=== PATIENT | male | born 1945 | race African-American/Black ===

== ENCOUNTER → 2016-11-24 | Outpatient (CLI) | payer OTHER | LOC: BHFA 15:00 | PROVIDERS: ATTEND Internal Medicine Cardiovascular Disease | DX: I48.91 Unspecified atrial fibrillation (principal); I42.9 Cardiomyopathy, unspecified; I10 Essential (primary) hypertension; E78.00 Pure hypercholesterolemia, unspecified; I34.0 Nonrheumatic mitral (valve) insufficiency ==

== ENCOUNTER → 2017-01-12 | Outpatient (CLI) | payer OTHER | LOC: BHFA 09:30 | PROVIDERS: ATTEND Internal Medicine Cardiovascular Disease | DX: I48.91 Unspecified atrial fibrillation (principal); I48.92 Unspecified atrial flutter; I47.2 Ventricular tachycardia ==

== ENCOUNTER 2017-01-26 06:25 | Inpatient (IN) | payer OTHER ==
[2017-01-26] MEDS ORDERED: NS 1,000 ML IV ONE (06:31)
[2017-01-26] MEDS ORDERED: diphenhydrAMINE 25 MG CAP PO ONE ×2 (06:31→06:49)
[2017-01-26] MEDS ORDERED: ASPIRIN EC 325 MG TAB PO ONE ×2 (06:31→06:49)
[2017-01-26] MEDS ORDERED: FAMOTIDINE 20 MG TAB PO ONE (06:31)
[2017-01-26] MEDS ORDERED: DIAZEPAM 5 MG TAB PO ONE (06:31)
--- NOTE | 2017-01-26 06:45 | CPEKG ---
Heart Rate: 62 RR Interval: 968 P-R Interval: 204 QRSD Interval: 112 QT Interval: 392 QTC Interval: 398 P Enterprise: 72 QRS Enterprise: 128 T Wave Enterprise: 68 EKG Severity - ABNORMAL ECG - EKG Impression: SINUS RHYTHM EKG Impression: NONSPECIFIC INTRAVENTRICULAR CONDUCTION DELAY EKG Impression: LOW VOLTAGE IN FRONTAL LEADS EKG Impression: INFEROLATERAL INFARCT, AGE INDETERMINATE EKG Impression: COMPARED WITH 11/19/2014, ATRIAL PACING NOT SEEN ON CURRENT STUDY Electronically Signed By: Divya Stanton 26-Jan-2017 11:48:13
[2017-01-26] MEDS ORDERED: FAMOTIDINE 20 MG TAB ONE (06:49)
[2017-01-26] MEDS ORDERED: DIAZEPAM 5 MG TAB ONE (06:50)
[2017-01-26 07:01] LABS: % IMMATURE GRANULYOCYTES 0.2 % (0.0-1.1); ABSOLUTE IMMATURE GRANULOCYTES 0.01 10^3/uL (0.00-0.10); ADD DIFF? NO; ADD MORPH? NO; ADD SCAN? NO; ATYPICAL LYMPHOCYTE FLAG 10 (0-99); FRAGMENT RBC FLAG 0 (0-99); HEMATOCRIT 37.2 % (40.0-51.0); HEMOGLOBIN 13.4 g/dL (13.7-17.5); LEFT SHIFT FLG 0 (0-99); LIPEMIA HEMOLYSIS FLAG 90 (0-99); MEAN CELL HEMOGLOBIN 33.1 pg (27.9-34.1); MEAN CELL VOLUME 91.9 fL (81.5-99.8); MEAN PLATELET VOLUME 10.1 fL (8.7-11.7); PLATELET CLUMPS FLAG 0 (0-99); PLATELET COUNT 89 10^3/uL (150-400); RED BLOOD CELL COUNT 4.05 10^6/uL (4.40-6.38)
[2017-01-26 07:11] LABS: INR 2.2 (0.83-1.16); PROTIME(PATIENT) 24.6 SEC (12.0-15.0)
[2017-01-26 07:21] LABS: ANION GAP 9 mEq/L (8-16); CALCIUM 9.3 mg/dL (8.5-10.4); CARBON DIOXIDE 23 mEq/l (22-31); CHLORIDE 105 mEq/L (97-110); CHOLESTEROL 166 mg/dL (140-220); CHOLESTEROL/HDL RATIO 3.13 RATIO (1.00-4.97); CREATININE 1.8 mg/dL (0.7-1.3); GLOMERULAR FILTRATION RATE 38; GLUCOSE 91 mg/dL (70-100); HIGH DENSITY LIPOPROTEIN 53 mg/dL (40-65); LDL/HDL RATIO 1.64 RATIO (1.00-3.64); LOW DENSITY LIPOPROTEIN 87 mg/dL (80-100); MAGNESIUM 1.8 mg/dL (1.6-2.3); NON-HIGH DENSITY LIPOPROTEIN 113 mg/dL (90-129); POTASSIUM 4.2 mEq/L (3.5-5.2); SODIUM 137 mEq/L (134-144); TRIGLYCERIDE 134 mg/dL (40-150); VERY LOW DENSITY LIPOPROTEINS 26 mg/dL (8-25)
[2017-01-26] MEDS ORDERED: HEPARIN 10,000 UNIT/10 ML MDV ONE (08:05)
[2017-01-26] MEDS ORDERED: IOPAMIDOL (ISOVUE-370) 150 ML BTL IV ONE (08:05)
[2017-01-26] MEDS ORDERED: VERAPAMIL 5 MG/2 ML VIAL ONE (08:05)
[2017-01-26] MEDS ORDERED: LIDOCAINE 1% 300 MG/30 ML SDV ONE (08:05)
[2017-01-26] MEDS ORDERED: fentaNYL 100 MCG/2 ML INJ ONE (08:05)
[2017-01-26] MEDS ORDERED: MIDAZOLAM 2 MG/2 ML VIAL ONE (08:05)
--- NOTE | 2017-01-26 10:27 | CPIP ---
[f rep st] INVASIVE CARDIAC PROCEDURE PROCEDURE PERFORMED: 1. Left heart catheterization. 2. Selective coronary angiography. 3. TR band arteriotomy repair. COMPLICATIONS: None. TOOL GRINDING TECHNICIAN: Jan Marion MD. INDICATION FOR THE PROCEDURE: Recurrent and incessant VT, which is new, requiring therapy in a cherrie ent with known spongiform cardiomyopathy/ventricular non compaction. BRIEF CLINICAL HISTORY: The patient has had hemodynamically significant VT, which was below a rate at which his AICD would deliver therapy. He had a presyncopal event and urinary incontinence relate d to his hypotension, and ultimately the ventricular rate sped up to a level that the device perform ed antitachycardia pacing. He has been admitted to the hospital, because of a lateral infarct patte rn on the EKG, to rule out coronary artery disease as a cause for new and recurrent ventricular tach ycardia. PROCEDURE IN DETAIL: After informed consent was obtained and n.p.o. status was confirmed, the regio n of the right wrist was cleaned, prepped, and draped in sterile fashion. A plethysmography and tra ce-assisted Petr test was performed, documenting dual arterial supply to the right index finger. T he patient then underwent the previously mentioned diagnostic procedure, with the use of a JR4, a JL 4, and a 5-Cymraes pigtail catheter. Standard wire exchange technique was utilized for all catheter exchanges. The right coronary artery is dominant. Approximately 4.5 mm in size proximally, with RICHIE-3 flow to the distal vessel. It does give rise to the posterior descending artery and a posterolateral ventr icular branch, which is relatively small. The left main coronary is large, approximately 8 mm in size, and bifurcates into an LAD and circumfl ex system. The LAD wraps around the ventricular apex moderately, and is a very large blood vessel, again, with RICHIE-3 flow and no evidence of obstruction. A proximal diagonal branch is the primary l ateral blood vessel, and is, again, widely patent with RICHIE-3 flow. The circumflex arises in its us ual location. It is approximately 3.5 mm in size, giving rise to 2 important obtuse marginal branch es and a left atrial branch, as well, which is prominent. No evidence of flow-limiting obstruction, dissection, or thrombus is identified on angiography. 24 mL of contrast were used for selective co ronary angiography. The patient underwent a left heart catheterization, demonstrating elevated left ventricular end-anaya tolic pressure that measured 29 mmHg. A left ventriculogram was not performed, given the patient's creatinine of 1.8 and our desire to limit the amount of contrast exposure. There was no evidence of aortic stenosis upon pullback across aortic valve. The patient will return to [facility] in good and stable condition. PLAN: For the patient to be admitted to the hospital, during a washout period for his Tikosyn, and then he will be loaded with amiodarone, starting with 300 mg intravenously on Monday morning, foll owed by a 1 mg/minute infusion, along with 400 mg p.o. b.i.d. orally to achieve a 325 g load of amio darone prior to his discharge from the hospital. If the patient develops atrial fibrillation or flutter, then he will require probably a catheter-bas ed intervention, as he has had paroxysmal and persistent atrial fibrillation in the past while on am iodarone therapy, but had only a single episode of hemodynamically important ventricular tachycardia while on amiodarone therapy. /[id number]/MODL
[2017-01-26] MEDS ORDERED: ACETAMINOPHEN 325 MG TAB PO PRN (10:42)
[2017-01-26] MEDS ORDERED: ATROPINE SULFATE 1 MG/10 ML SYR IVP PRN (10:42)
[2017-01-26] MEDS ORDERED: NITROGLYCERIN 0.4 MG BTL SL PRN (10:42)
[2017-01-26] MEDS: ISOSORBIDE DINITRATE 20 MG TAB PO SCH ×2 (14:21→20:53)
[2017-01-26] MEDS: FERROUS SULFATE 325 MG TAB PO SCH (19:25)
[2017-01-26] MEDS: CARVEDILOL 6.25 MG TAB PO SCH (19:25)
[2017-01-26] MEDS: ATORVASTATIN CALCIUM 20 MG TAB PO SCH (20:53)
[2017-01-26] MEDS: DIVALPROEX ER 250 MG TAB PO SCH (20:53)
[2017-01-26] MEDS: RAMIPRIL 5 MG CAP PO SCH (20:53)
[2017-01-26] MEDS: DOCUSATE SODIUM 100 MG CAP PO SCH (20:54)
[2017-01-26] MEDS: SPIRONOLACTONE 25 MG TAB PO SCH (20:54)
[2017-01-27 04:50] LABS: ANION GAP 8 mEq/L (8-16); CARBON DIOXIDE 23 mEq/l (22-31); CHLORIDE 109 mEq/L (97-110); CREATININE 1.5 mg/dL (0.7-1.3); GLOMERULAR FILTRATION RATE 46; GLUCOSE 80 mg/dL (70-100); POTASSIUM 4.4 mEq/L (3.5-5.2); SODIUM 140 mEq/L (134-144)
[2017-01-27] MEDS ORDERED: DIGOXIN 125 MCG TAB PO SCH (09:00)
[2017-01-27] MEDS ORDERED: CALCIUM POLYCARBOPHIL PO SCH ×2 (09:00)
[2017-01-27] MEDS: CARVEDILOL 6.25 MG TAB PO SCH ×2 (10:49→18:45)
[2017-01-27] MEDS: lamoTRIgine 25 MG TAB PO SCH (10:50)
[2017-01-27] MEDS: FUROSEMIDE 20 MG TAB PO SCH (10:50)
[2017-01-27] MEDS: FERROUS SULFATE 325 MG TAB PO SCH (10:50)
[2017-01-27] MEDS: ISOSORBIDE DINITRATE 20 MG TAB PO SCH ×3 (10:50→22:17)
[2017-01-27] MEDS: ALLOPURINOL 100 MG TAB PO SCH (10:50)
[2017-01-27] MEDS: SPIRONOLACTONE 25 MG TAB PO SCH ×2 (10:51→22:17)
[2017-01-27] MEDS: PSYLLIUM METAMUCIL 1 PKT PO SCH (10:51)
--- NOTE | 2017-01-27 11:18 | PDCARPN ---
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 He was found to have 4 episodes of VT on ICD monitoring. He has held Tikosyn as of 01/25 to allow washout and plans are for initiation of Amiodarone tomorrow. He proceeded to [facility] yesterday which showed nod disease. #. VT: no obstructive disease on [facility] proceeding to Tikosyn washout with plans to initiate Amiodarone Monday protocol will be amiodarone 300 mg bolus with 1 mg/min x 24 with concomitant initiation of Amiodarone PO 400 BID/ orders entered continue 400 BID for 1 week and then reduce 400 daily #. PAF: currently in SR with PVC singles and 1 PVC triplet on telemetry 2 runs of VT yesterday #. spongiform cardiomyopathy/LV noncompaction: EF 26% home regimen of Coreg, Hydralazine, Isosorbide, Lasix, Spironolactone, Ramipril continued appears euvolemic currently #. CKD: Cr today 1.5 will monitor #. DVT ppx: continue Warfarin and ambulate #. LOS: D/C Monday as Dr. Marion wants him top get 3.25 g load of Amiodarone Plan: Start Amiodarone tomorrow 01/27/17 10:46 01/27/17 11:20 Subjective: Feels fatigued. Had 2 runs of symptomatic VT last night. No cp, presyncope/ syncope. Reviewed/Discussed With: family, other (Dr. Marion) Objective: Vital Signs (8 Hrs) Temp Pulse Resp BP Pulse Ox 01/27/17 07:31 97.3 F 65 14 92/65 L 98 01/27/17 04:00 97.9 F 64 13 100/70 94 Intake/Output (24 Hrs) 01/26/17 01/27/17 01/28/17 05:59 05:59 05:59 Intake Total 1260 Balance 1260 Intake: Oral (ml) 660 IV Intake (ml) 600 Other: Weight 88.5 kg Number of Voids Toilet 3 Result Diagrams: 01/26/17 06:45 01/27/17 03:30 EKG: personally interpreted shows SR with IVCD, biatrial abnormality, PRWP Telemetry: reviewed - Physical Exam Constitutional: no apparent distress Eyes: PERRL, anicteric sclera Ears, Nose, Mouth, Throat: moist mucous membranes Cardiovascular: regular rate and rhythm Respiratory: clear to auscultate bilat, reduced air movement Neurologic: AAOx3 Psychiatric: cooperative, interactive ICD10 Worksheet Patient Problems: Problems Problem Status Onset Atrial fibrillation Acute Chronic Disease Mgmt/Transitional Care Acute Chronic systolic CHF (congestive heart failure) Acute Systolic CHF, acute on chronic Acute
[2017-01-27] MEDS ORDERED: WARFARIN SODIUM 2.5 MG TAB PO SCH (22:00)
[2017-01-27] MEDS: RAMIPRIL 5 MG CAP PO SCH (22:17)
[2017-01-27] MEDS: DIVALPROEX ER 250 MG TAB PO SCH (22:18)
[2017-01-27] MEDS: DOCUSATE SODIUM 100 MG CAP PO SCH (22:18)
[2017-01-27] MEDS: ATORVASTATIN CALCIUM 20 MG TAB PO SCH (22:19)
[2017-01-28] MEDS ORDERED: AMIODARONE HCL 300 MG in D5W 100 ML IV ONE (07:30)
[2017-01-28 08:05] LABS: INR 1.5 (0.83-1.16); PROTIME(PATIENT) 18.1 SEC (12.0-15.0)
[2017-01-28 08:42] LABS: ANION GAP 7 mEq/L (8-16); CALCIUM 8.9 mg/dL (8.5-10.4); CARBON DIOXIDE 22 mEq/l (22-31); CHLORIDE 108 mEq/L (97-110); CREATININE 1.3 mg/dL (0.7-1.3); GLOMERULAR FILTRATION RATE 55; GLUCOSE 85 mg/dL (70-100); POTASSIUM 4.6 mEq/L (3.5-5.2); SODIUM 137 mEq/L (134-144)
[2017-01-28] MEDS: AMIODARONE HCL 200 ML IV SCH ×2 (09:25→15:23)
[2017-01-28] MEDS: ALLOPURINOL 100 MG TAB PO SCH (10:14)
[2017-01-28] MEDS: lamoTRIgine 25 MG TAB PO SCH (10:14)
[2017-01-28] MEDS: CARVEDILOL 6.25 MG TAB PO SCH ×2 (10:15→19:10)
[2017-01-28] MEDS: FUROSEMIDE 20 MG TAB PO SCH (10:15)
[2017-01-28] MEDS: FERROUS SULFATE 325 MG TAB PO SCH (10:15)
[2017-01-28] MEDS: SPIRONOLACTONE 25 MG TAB PO SCH ×2 (10:15→21:22)
[2017-01-28] MEDS: ISOSORBIDE DINITRATE 20 MG TAB PO SCH ×3 (10:15→21:21)
[2017-01-28] MEDS: AMIODARONE HCL 200 MG TAB PO SCH ×2 (10:16→21:21)
[2017-01-28] MEDS: PSYLLIUM METAMUCIL 1 PKT PO SCH (10:16)
--- NOTE | 2017-01-28 10:19 | PDCARPN ---
Cardiology Progress Note Chief Complaint: Mr. Basurto is feeling well. No events overnight. Telemetry demonstrate NSR with occasional PVC's. No sustained ventricular ectopy. Assessment/Plan: Assessment: 1. Ventricular Tachycardia 2. PAF 3. LV non compaction. LVEF 26% 4. CKD. Cr 1.5 Plan: 1. Amiodarone loading 2. Telemetry 3. Monitor renal function 4. Continue current mediations. know hx of hypotension, asymptomatic. 5. Dispo: plan for DC on monday after Amiodarone loading 01/28/17 10:17 01/28/17 10:21 Reviewed/Discussed With: multidisciplinary team Objective: Vital Signs (8 Hrs) Temp Pulse Resp BP Pulse Ox 01/28/17 08:00 36.6 C 68 16 84/58 L 92 01/28/17 04:00 36.5 C 66 13 86/61 L 95 Intake/Output (24 Hrs) 01/27/17 01/28/17 01/29/17 05:59 05:59 05:59 Intake Total 1260 650 Balance 1260 650 Intake: Oral (ml) 660 650 IV Intake (ml) 600 Other: Weight 88.5 kg Intake Quantity Yes Sufficient Number of Voids Toilet 3 2 Result Diagrams: 01/26/17 06:45 01/28/17 07:31 Telemetry: NSR with occasional PVC's - Physical Exam Constitutional: healthy appearing Ears, Nose, Mouth, Throat: moist mucous membranes Cardiovascular: regular rate and rhythm, no murmurs, no rubs, no gallops Skin: no rashes Musculoskeletal: no muscular tenderness Neurologic: AAOx3, CN II-XII grossly intact Psychiatric: cooperative, interactive, following commands ICD10 Worksheet Patient Problems: Problems Problem Status Onset Atrial fibrillation Acute Chronic Disease Mgmt/Transitional Care Acute Chronic systolic CHF (congestive heart failure) Acute Systolic CHF, acute on chronic Acute
[2017-01-28] MEDS: RAMIPRIL 5 MG CAP PO SCH (21:21)
[2017-01-28] MEDS: DOCUSATE SODIUM 100 MG CAP PO SCH (21:21)
[2017-01-28] MEDS: ATORVASTATIN CALCIUM 20 MG TAB PO SCH (21:22)
[2017-01-28] MEDS: DIVALPROEX ER 250 MG TAB PO SCH (21:22)
[2017-01-28] MEDS: WARFARIN SODIUM 5 MG TAB PO SCH (21:25)
[2017-01-29 05:06] LABS: ALANINE AMINOTRANSFERASE 35 IU/L (21-72); ALBUMIN 3.9 g/dL (3.5-5.0); ALKALINE PHOSPHATASE 80 IU/L (38-126); ANION GAP 11 mEq/L (8-16); ASPARTATE AMINOTRANSFERASE 35 IU/L (17-59); BILIRUBIN,TOTAL 1.1 mg/dL (0.1-1.4); CALCIUM 8.8 mg/dL (8.5-10.4); CARBON DIOXIDE 19 mEq/l (22-31); CHLORIDE 105 mEq/L (97-110); CREATININE 1.8 mg/dL (0.7-1.3); GLOMERULAR FILTRATION RATE 38; GLUCOSE 92 mg/dL (70-100); POTASSIUM 4.6 mEq/L (3.5-5.2); SODIUM 135 mEq/L (134-144)
[2017-01-29 05:10] LABS: INR 1.44 (0.83-1.16); PROTIME(PATIENT) 17.5 SEC (12.0-15.0)
[2017-01-29] MEDS: CARVEDILOL 6.25 MG TAB PO SCH ×2 (09:13→19:31)
[2017-01-29] MEDS: AMIODARONE HCL 200 MG TAB PO SCH ×2 (09:13→21:20)
[2017-01-29] MEDS: ISOSORBIDE DINITRATE 20 MG TAB PO SCH ×3 (10:19→21:21)
[2017-01-29] MEDS: lamoTRIgine 25 MG TAB PO SCH (10:19)
[2017-01-29] MEDS: PSYLLIUM METAMUCIL 1 PKT PO SCH (10:20)
[2017-01-29] MEDS: ALLOPURINOL 100 MG TAB PO SCH (10:20)
[2017-01-29] MEDS: FUROSEMIDE 20 MG TAB PO SCH (10:20)
[2017-01-29] MEDS: FERROUS SULFATE 325 MG TAB PO SCH (10:20)
[2017-01-29] MEDS: SPIRONOLACTONE 25 MG TAB PO SCH ×2 (10:20→21:21)
--- NOTE | 2017-01-29 10:21 | PDCARPN ---
Cardiology Progress Note Chief Complaint: Mr. Basurto is doing well. He complains of occasional abdominal discomfort, a similar sensation that he experienced with Afib in the past. No evidence of afib on telemetry. He did have a recorded tracing on telemetry this morning at 8:20 that is consistent with artifact that occurred while walking to the bathroom. He was asymptomatic at the time. There is no ventricular tachycardia on telemetry. Rare PVC's. Noter Cr is 1.8 today. His Cr has fluctuated from 1.8 on admit, to 1.3 then 1.5 and 1.8 today. Will continue to follow. BP is chronically low. Asymptomatic. Assessment/Plan: Assessment: 1. Ventricular Tachycardia 2. PAF 3. LV non compaction. LVEF 26% 4. CKD. Cr 1.8 Plan: 1. Amiodarone 400 mg bid (He has had 2.6 gram to date) 2. Telemetry 3. Monitor renal function 4. Continue current mediations. know hx of hypotension, asymptomatic. 5. Dispo: plan for DC on monday after Amiodarone loading 01/28/17 10:17 01/28/17 10:21 01/29/17 10:21 Reviewed/Discussed With: multidisciplinary team Time Spent With Patient: 25 minutes Objective: Vital Signs (8 Hrs) Temp Pulse Resp BP Pulse Ox 01/29/17 07:27 36.3 C 60 14 88/58 L 97 01/29/17 04:00 36.6 C 60 17 82/55 L 95 Intake/Output (24 Hrs) 01/28/17 01/29/17 01/30/17 05:59 05:59 05:59 Intake Total 650 650 Balance 650 650 Intake: Oral (ml) 650 650 Other: Intake Quantity Yes Yes Sufficient Number of Voids Toilet 2 2 Result Diagrams: 01/26/17 06:45 01/29/17 03:40 - Physical Exam Constitutional: WDWN Neurologic: AAOx3, CN II-XII grossly intact Psychiatric: cooperative ICD10 Worksheet Patient Problems: Problems Problem Status Onset Atrial fibrillation Acute Chronic Disease Mgmt/Transitional Care Acute Chronic systolic CHF (congestive heart failure) Acute Systolic CHF, acute on chronic Acute
[2017-01-29] MEDS ORDERED: LORazepam 0.5 MG TAB PO PRN (20:48)
[2017-01-29] MEDS: DOCUSATE SODIUM 100 MG CAP PO SCH (21:20)
[2017-01-29] MEDS: RAMIPRIL 5 MG CAP PO SCH (21:20)
[2017-01-29] MEDS: DIVALPROEX ER 250 MG TAB PO SCH (21:20)
[2017-01-29] MEDS: WARFARIN SODIUM 5 MG TAB PO SCH (21:21)
[2017-01-29] MEDS: ATORVASTATIN CALCIUM 20 MG TAB PO SCH (21:21)
[2017-01-30 06:00] VITALS: RESP 16
[2017-01-30 08:19] LABS: INR 1.61 (0.83-1.16); PROTIME(PATIENT) 19.2 SEC (12.0-15.0)
[2017-01-30 08:59] VITALS: BP 82/54; PULSE 60; TEMP 97.7; O2SAT 99
[2017-01-30] MEDS: AMIODARONE HCL 200 MG TAB PO SCH (08:59)
[2017-01-30] MEDS: FERROUS SULFATE 325 MG TAB PO SCH (08:59)
[2017-01-30] MEDS: lamoTRIgine 25 MG TAB PO SCH (08:59)
[2017-01-30] MEDS: CARVEDILOL 6.25 MG TAB PO SCH (08:59)
[2017-01-30] MEDS: ALLOPURINOL 100 MG TAB PO SCH (08:59)
[2017-01-30] MEDS: FUROSEMIDE 20 MG TAB PO SCH (08:59)
[2017-01-30] MEDS: SPIRONOLACTONE 25 MG TAB PO SCH (08:59)
[2017-01-30] MEDS: ISOSORBIDE DINITRATE 20 MG TAB PO SCH (08:59)
[2017-01-30] MEDS: PSYLLIUM METAMUCIL 1 PKT PO SCH (09:04)
--- NOTE | 2017-01-30 09:44 | GDS ---
[f rep st] DISCHARGE SUMMARY DISCHARGE DIAGNOSES: 1. Severe nonischemic cardiomyopathy, thought secondary to left ventricular noncompaction. 2. Chronic systolic congestive heart failure. 3. History of ventricular tachycardia, appropriately treated with ICD therapy. 4. History of paroxysmal atrial fibrillation. 5. History of chronic renal insufficiency. HOSPITAL COURSE: The patient was admitted after he was found to have 4 episodes of appropriately-tr eated ventricular tachycardia on ICD monitoring. He was on Tikosyn at the time. Tikosyn was discon tinued. He was allowed to wash out for several days, at which point amiodarone was begun. He was l oaded with amiodarone. During his hospitalization here, he did not manifest any significant ventric ular arrhythmias or atrial arrhythmias. He tolerated the change in medications quite nicely. Becau se of the ventricular tachycardia, he underwent coronary angiography on the date of his admission. There is a full and separately dictated report. There was no indication of obstructive coronary art dinah disease. PERTINENT LABORATORIES: During his hospitalization here, his renal function remained stable. At [facility], his BUN was 26, with a creatinine of 1.8, potassium of 4.6, normal liver function tests, an d terminal proBNP of 2070. Total cholesterol 166, LDL 87, HDL 53, TSH was 1.3. His INR at admissio n was 2.2, and at discharge 1.61. White blood cell count of 5.74, hematocrit 37.2, platelet count o f 89,000. DISCHARGE PHYSICAL EXAMINATION: VITAL SIGNS: Blood pressure 95/59, heart rate 66, respiratory rate 16, saturations on room air 94%. GENERAL: Healthy black male in no acute distress. HEENT: No ju gular venous distention. RESPIRATORY: Clear lung hodges bilaterally. CARDIAC: ICD located in the left infraclavicular fossa. Regular rate and rhythm. Soft third heart sound. ABDOMEN: Soft with no masses. EXTREMITIES: Without edema. FOLLOWUP: I have asked that he follow up with Dr. Marion some time later this week. I have also as ked him to get an INR, either Monday or , to follow up in the INR clinic and make appropr iate adjustments to his Coumadin dose, in light of the interaction with amiodarone. /[id number]/MODL
== END 2017-01-30 11:09 | disposition home or self-care (01) | DRG 287 ==
LOC: FCATH 06:25 → OBSVTOIN 11:08 → F2W 11:49
PROVIDERS: ADMIT Internal Medicine Cardiovascular Disease; ATTEND Internal Medicine Cardiovascular Disease
DX: I47.2 Ventricular tachycardia (principal); I50.22 Chronic systolic (congestive) heart failure; I12.9 Hypertensive chronic kidney disease with stage 1 through stage 4 chronic kidney disease, or unspecified chronic kidney disease; N18.3 Chronic kidney disease, stage 3 (moderate); E78.00 Pure hypercholesterolemia, unspecified; Z95.810 Presence of automatic (implantable) cardiac defibrillator
CPT/HCPCS: J0282; J1644; J2250; J3010; Q9967

== ENCOUNTER 2017-02-01 14:59 | Inpatient (IN) | payer OTHER ==
--- NOTE | 2017-02-01 15:21 | EDPHY ---
H & P Stated Complaint: A-Robbie MENDOZA sent pt stomach cramping ANGLIN started monday Time Seen by Provider: 02/01/17 15:21 - Personal History Current Tetanus/Diphtheria Vaccine: Yes Current Tetanus Diphtheria and Acellular Pertussis (TDAP): Yes - Medical/Surgical History Hx Asthma: No Hx Chronic Respiratory Disease: No Hx Diabetes: No Hx Cardiac Disease: Yes Hx Renal Disease: Yes Hx Cirrhosis: No Hx Alcoholism: No Hx HIV/AIDS: No Hx Splenectomy or Spleen Trauma: No Other PMH: medical- aflutter (ablation), afib, hld, htn, TIA, defibrilator, spongiform cardiomyopathy, gout, depression, mod to severe mitral regurg, AICD, VT, hypotension, cardiac ablations, heart failure, ckd, dyslipidemia, - Social History Smoking Status: Former smoker Constitutional: Initial Vital Signs Temperature (C) 36.8 C 02/01/17 15:02 Heart Rate 88 02/01/17 15:02 Respiratory Rate 16 02/01/17 15:02 Blood Pressure 89/59 L 02/01/17 15:02 O2 Sat (%) 99 02/01/17 15:02 O2 Delivery Mode [Post Non-Rebreather Mask Procedure 4th] O2 Delivery Mode [Post Non-Rebreather Mask Procedure 3rd] O2 Delivery Mode [Post Non-Rebreather Mask Procedure 2nd] O2 Delivery Mode [Post Non-Rebreather Mask Procedure 1st] O2 Delivery Mode [Procedural Non-Rebreather Mask 2nd] O2 Delivery Mode [Procedural Non-Rebreather Mask 1st] O2 Delivery Mode Non-Rebreather Mask O2 (L/minute) [Post Procedure 15 4th] O2 (L/minute) [Post Procedure 15 3rd] O2 (L/minute) [Post Procedure 15 2nd] O2 (L/minute) [Post Procedure 15 1st] O2 (L/minute) [Procedural 2nd] 100 O2 (L/minute) [Procedural 1st] 15 O2 (L/minute) 15 Allergies/Adverse Reactions: levofloxacin Allergy (Verified 05/13/15 08:53) levofloxicillin Allergy (Uncoded 04/17/14 07:01) Home Medications: Medication Instructions Recorded Atorvastatin Calcium [Lipitor 20 20 mg PO HS 12/29/13 mg (*)] Carvedilol [Coreg (*)] 12.5 mg PO BIDMEAL 12/29/13 Digoxin [Lanoxin 0.125 mg] 0.125 mg PO DAILY 12/29/13 Divalproex ER [Depakote ER 250 MG 250 mg PO HS 12/29/13 (*)] Docusate Sodium [Colace 100 MG (*)] 200 mg PO HS 12/29/13 Ramipril [Altace 5mg (*)] 5 mg PO HS 12/29/13 Herbals/Supplements -Info Only 1 ea PO DAILY 05/22/14 Calcium Carbonate [Calcium] 500 mg PO DAILY 11/17/14 Calcium Polycarbophil [FIBERCON] 2 tab PO DAILY 05/12/15 Warfarin Sodium [Coumadin 2.5MG 2.5 mg PO TUFR@22 05/12/15 (*)] Isosorbide Dinitrate [Isosorbide 20 mg PO TID 01/26/17 Dinitrate 20 mg (*)] Spironolactone [Aldactone 25 MG 25 mg PO BID 01/26/17 (*)] Warfarin Sodium [Coumadin 5MG (*)] 5 mg PO SUMOWETHSA@22 01/26/17 hydrALAZINE [Apresoline 50 mg (*)] 50 mg PO TID 01/26/17 lamoTRIgine [LaMICtal] 25 mg PO DAILY 01/26/17 Acetaminophen [Tylenol 325mg (*)] 650 mg PO Q4HRS PRN #0 tab 01/30/17 Allopurinol [Allopurinol 100 MG 100 mg PO DAILY #0 tab 01/30/17 (*)] Amiodarone HCl [Pacerone (*)] 400 mg PO BID #60 tab 01/30/17 Ergocalciferol [Vitamin D2 (*)] 50,000 unit PO Q10D 02/01/17 Furosemide [Lasix 40 MG (*)] 20 mg PO DAILY 02/01/17 clonazePAM [Clonazepam] 0.5 mg PO DAILY PRN 02/01/17 Medical Decision Making ED Course/Re-evaluation: CHIEF COMPLAINT: Persistent generalized weakness HISTORY OF PRESENT ILLNESS: The patient is an anticoagulated 71 y/o male with an extensive cardiac history who presents to the Emergency Department complaining of generalized weakness and shortness of breath beginning after discharged home from the hospital on Monday, two days prior to arrival. He was admitted to the hospital on 01/26 for ventricular tachycardia and nonischemic cardiomyopathy. He has a pacemaker in place; when interrogated, the pacemaker revealed that the patient has been in persistent atrial fibrillation since leaving the hospital on 01/30. Upon arrival , the patient reports that he has not been sleeping well, has persistent generalized weakness, and has shortness of breath. He denies syncope, near syncope, or chest pain. He is taking amiodarone to manage his dysrhythmia. Cardiac history also includes CHF, nonischemic cardiomyopathy, and hypertension. REVIEW OF SYSTEMS: A 10 point review of systems was performed and is negative with the exception of the elements mentioned in the history of present illness. PHYSICAL EXAM: HR 88, BP 89/59, O2 Sat 99%, RR. Temp noted 36.8 C. General Appearance: Pale, Alert, well hydrated, appropriate, and non-toxic appearing. Head: Atraumatic without scalp tenderness or obvious injury Eyes: Pupils equal, round, reactive to light and accommodation, EOMI, no trauma , no injection. Ears: Clear bilaterally, no perforation, normal landmarks Nose: Atraumatic, no rhinorrhea, clear. Throat: There is no erythema or exudates, no lesions, normal tonsils, mucus membranes moist. Neck: Supple, 2+ carotid upstroke, nontender, no lymphadenopathy. Respiratory: No retractions, no distress, no wheezes, and no accessory muscle use. Bilateral rales. Cardiovascular: Atrial fibrillation, paced rate 102. No murmurs, rubs, or gallops. Bilateral carotid, radial, dorsalis pedis, and posterior tibial pulses intact. Good capillary refill all extremities. Gastrointestinal: Abdomen is soft, nontender, non-distended, no masses, no rebound, no guarding, no peritoneal signs. Musculoskeletal: Normal active ROM of all extremities, atraumatic. Neurological: Alert, appropriate, and interactive. The patient has normal DTRs and non-focal cranial nerves, motor, sensory, and cerebellar exam. Skin: Good turgor, no nodules on palpation. Superficial thrombophlebitis of left forearm from IV stick. Past medical history includes chronic renal insufficiency, paroxysmal atrial fibulation, chronic systolic congestive heart failure, ventricular tachycardia, severe nonischemic cardiomyopathy, TIA, hyperlipidemia, hypotension. Past surgical history: Cardiac ablation Family history: Non-contributory Social history: Retired Past medical records were viewed including 01/26/17, 05/13/15, 12/29/13, 02/21/11 admissions. DIFFERENTIAL DIAGNOSIS: The differential diagnosis for the patient's chest pain included but was not limited to atrial fibulation, myocardial ischemia, ventricular tachycardia, DVT. CRITICAL CARE TIME: I spent a total of 30 minutes of critical care time including but not limited to obtaining history, performing a physical exam, ordering interventions and the bedside monitoring of those interventions, collecting and interpreting tests and discussion with consultants but not including time spent performing procedures. PROCEDURES/DIAGNOSTICS: Initial EKG obtained at 1525. The 12 lead EKG was interpreted by myself. Atrial fibulation rate controlled 102. Borderline prolonged QT interval. See hard copy and/or "tracemaster" electronic copy for interpretation. Procedure: Conscious sedation. Indication: Cardioversion for atrial fibulation I was asked by Dr. Dennis to perform procedural sedation. The patient is an appropriate candidate to tolerate procedural sedation. The patient's vitals signs and mental status are appropriate. The risks, benefits and alternatives of the sedation were discussed with the patient. The patient is ASA classification 1. The patient's Mallampati airway score was 1 and the patient did meet the 3-3-2 airway measurements. A time out was completed. The patient was sedated with 100 mg/Propofol. The patient was monitored with continuous pulse oximetry, slitting machine operator helper and end tidal CO2. There were no complications and no significant hypoxemia. The total time I spent at the bedside during the procedural sedation was 9 minutes. The patient was examined after the procedural sedation and has returned to their pre-sedation baseline with normal vital signs and a normal examination. Procedure: Electrical Cardioversion. Indication: Atrial fibulation Risks, benefits, alternatives discussed with the patient and consent obtained. The patient was on a continuous concessions manager, with airway equipment at the bedside. The patient was on continuous pulse oximetry and passive CO2 monitor. The cardioversion was performed with 200 joules biphasic current. The cardioversion was successful. The patient tolerated the procedure well with no complications. The procedure was performed by Dr. Dennis. Repeat EKG obtained following cardioversion. The 12 lead EKG was interpreted by myself. Normal sinus rhythm, rate 66. See hard copy and/or "tracemaster" electronic copy for interpretation. MEDICAL DECISION MAKING: This is a 71 y/o patient with an extensive cardiac history, with a pacemaker, who has been in atrial fibulation since his discharge from the hospital on for nonischemic cardiomyopathy and ventricular tachycardia. He is hypotensive at 89/59 upon arrival. Labs showed slightly elevated troponin, acute renal insufficiency, and a significant amount of fluid from CHF. He will not metabolize propofol very well but he need to be emergently cardioverted for his safety since he is hypotensive and this may be due to his multiple medications. I discussed this with Dr. Dennis and he agreed. Additionally, US of the left forearm will be obtained to evaluate apparent thrombophlebitis, a complication of his recent hospital admission. 1535: Dr. Dennis, media job titles, at bedside. Labs reviewed and showed Troponin slightly elevated, acute renal insufficiency, and CHF. The patient was moved to trauma 2 for cardioversion once labs were received. IV established. 1L IV NS administered as recommended by Dr. Dennis. 1750: Patient's cough is worsening due to CHF. Due to this 40 mg Lasix given. Additionally, he has superficial thrombophlebitis of his left forearm from IV stick the last time he was here. Plan to ultrasound to rule out DVT and prescription written for 1 g ansaph. 1803: US of the left forearm reveals a superficial thrombophlebitis; no DVT per Dr. Burton, radiology. The patient has remained stable following cardioversion procedure here in the ED. He will be admitted to PCU under the care of Dr. Dennis. - Data Points Laboratory Results: Laboratory Results 02/01/17 15:35 02/01/17 15:35 02/01/17 02/01/17 02/01/17 15:35 15:35 15:35 WBC 6.56 10^3/uL 10^3/uL (3.80-9.50) RBC 3.84 10^6/uL L 10^6/uL (4.40-6.38) Hgb 12.7 g/dL L g/dL (13.7-17.5) Hct 35.0 % L % (40.0-51.0) MCV 91.1 fL fL (81.5-99.8) MCH 33.1 pg pg (27.9-34.1) MCHC 36.3 g/dL g/dL (32.4-36.7) RDW 12.9 % % (11.5-15.2) Plt Count 102 10^3/uL L 10^3/uL (150-400) MPV 10.9 fL fL (8.7-11.7) Neut % (Auto) 62.7 % % (39.3-74.2) Lymph % (Auto) 26.7 % % (15.0-45.0) [place] % (Auto) 7.8 % % (4.5-13.0) Eos % (Auto) 1.7 % % (0.6-7.6) Baso % (Auto) 0.8 % % (0.3-1.7) Nucleat RBC Rel Count 0.0 % % (0.0-0.2) Absolute Neuts (auto) 4.12 10^3/uL 10^3/uL (1.70-6.50) Absolute Lymphs (auto) 1.75 10^3/uL 10^3/uL (1.00-3.00) Absolute Monos (auto) 0.51 10^3/uL 10^3/uL (0.30-0.80) Absolute Eos (auto) 0.11 10^3/uL 10^3/uL (0.03-0.40) Absolute Basos (auto) 0.05 10^3/uL 10^3/uL (0.02-0.10) Absolute Nucleated RBC 0.00 10^3/uL 10^3/uL (0-0.01) Immature Gran % 0.3 % % (0.0-1.1) Immature Gran # 0.02 10^3/uL 10^3/uL (0.00-0.10) Sodium 136 mEq/L mEq/L (134-144) Potassium 5.4 mEq/L H mEq/L (3.5-5.2) Chloride 104 mEq/L mEq/L (97-110) Carbon Dioxide 19 mEq/l L mEq/l (22-31) Anion Gap 13 mEq/L mEq/L (8-16) BUN 42 mg/dL H mg/dL (7-23) Creatinine 2.2 mg/dL H mg/dL (0.7-1.3) Estimated GFR 30 Glucose 115 mg/dL H mg/dL (70-100) Calcium 9.2 mg/dL mg/dL (8.5-10.4) Magnesium 2.3 mg/dL mg/dL 2.4 mg/dL H mg/dL (1.6-2.3) (1.6-2.3) Troponin I 0.040 ng/mL H ng/mL (0-0.034) NT-Pro-B Natriuret Pep 81948 pg/mL H pg/mL (0-125) TSH 2.160 uIU/mL uIU/mL (0.465-4.680) Medications Given: Discontinued Medications Digoxin (Lanoxin) 125 mcg PO ONCE ONE Stop: 02/01/17 17:09 Last Admin: 02/01/17 17:50 Dose: 125 mcg Furosemide (Lasix Injection) 40 mg IVP EDNOW ONE Stop: 02/01/17 17:51 Last Admin: 02/01/17 18:46 Dose: 40 mg Sodium Chloride (Ns) 1,000 mls @ 0 mls/hr IV ONCE ONE PRN Reason: Wide Open Stop: 02/01/17 15:41 Last Admin: 02/01/17 15:40 Dose: 1,000 mls Ketamine HCl (Ketamine) 90 mg IVP EDNOW ONE Stop: 02/01/17 16:38 Last Admin: 02/01/17 17:24 Dose: Not Given Propranolol HCl (Inderal Injection) 100 mg IV ONCE ONE Stop: 02/01/17 16:41 Last Admin: 02/01/17 16:43 Dose: 100 mg Departure - Departure Disposition: [facility] Inpatient Acute Clinical Impression: Atrial fibrillation status post cardioversion, Renal insufficiency Atrial fibrillation Qualifiers: Atrial fibrillation type: paroxysmal Qualified Code(s): I48.0 - Paroxysmal atrial fibrillation Condition: Fair Report Scribed for: Giancarlo Muñoz Report Scribed by: Jag Ward Date of Report: 02/01/17 Time of Report: 15:30
--- NOTE | 2017-02-01 15:29 | CPEKG ---
Heart Rate: 102 RR Interval: 588 QRSD Interval: 102 QT Interval: 376 QTC Interval: 490 QRS [place]: 173 T Wave [place]: 69 EKG Severity - ABNORMAL ECG - EKG Impression: ATRIAL FIBRILLATION EKG Impression: PROBABLE INFERIOR INFARCT, AGE INDETERMINATE EKG Impression: LATERAL INFARCT, AGE INDETERMINATE EKG Impression: BORDERLINE PROLONGED QT INTERVAL Electronically Signed By: Giancarlo Muñoz 01-Feb-2017 20:16:29
[2017-02-01] MEDS ORDERED: NS 1,000 ML IV ONE (15:40)
--- NOTE | 2017-02-01 15:46 | PDCONSULT ---
Vice President Client Services Note: Chief complaint: Weakness. History of present illness patient is 71 years old. He has a history of a chronic non compaction cardiomyopathy diagnosed 12 years ago. He has recently been struggling with atrial fibrillation and ventricular tachycardia. He has an ICD in place. He was hospitalized over and since that time has felt poorly. He was found to be in atrial fibrillation which has been persistent since that time. He is chronically anticoagulated. He has had this in the past and required cardioversion. He is admitted to the emergency department [facility] for elective cardioversion in the setting of persistent weakness and fatigue. He denies chest pain, shortness of breath. He has no PND orthopnea. He has not had no syncope or near syncope. His device interrogation done at the office does not show VT. Recent hospitalization was complicated by a phlebitis involving the left forearm. He has no prior history of myocardial infarction, no history of valvular heart disease. He has normal coronary arteries at the time of diagnosis. General review of systems negative for fever chills, nausea vomiting, abdominal pain, diarrhea constipation, dysuria bruising bleeding hematemesis melena or hemoptysis. Outpatient medications: Reviewed new medicine includes amiodarone 200 mg a day , allopurinol 100 mg daily, Coreg 12.5 mg twice daily. Metamucil daily, Lasix 20 mg daily, hydralazine 50 mg twice daily, isosorbide 20 mg three times daily, lamotrigine 25 mg daily, spironolactone 25 mg a day, amiodarone 400 mg a day, iron supplementation 81 mg daily. Altace 5 mg a day. Depakote ER 22 turned 50 mg daily, do look blocks daily. Allergies: Levofloxacin. Social history: No tobacco, no alcohol. Family history noncontributory. Physical examination current heart rate is 96. Blood pressure 140/70. This is a ill-appearing male with dry mucous membranes. He had no conjunctival injection. He had no JVP 90 degrees. His chest is clear. Cardiac exam showed irregular regular rhythm with no murmur rub or gallop. His ICD is healed well with a large keloid. His abdomen was soft nontender with good bowel sounds and no organomegaly. Extremities are free of edema with no clubbing or cyanosis. Neurological is alert and oriented with normal mood and affect. Laboratory data Laboratory Tests 02/01/17 15:35 WBC 6.56 Hgb 12.7 L Hct 35.0 L Laboratory Tests 02/01/17 15:35 Sodium 136 Potassium 5.4 H Chloride 104 Carbon Dioxide 19 L Anion Gap 13 BUN 42 H Creatinine 2.2 H Estimated GFR 30 Glucose 115 H Calcium 9.2 Magnesium 2.4 H Troponin I 0.040 H NT-Pro-B Natriuret Pep 48877 H . EKG atrial fibrillation with controlled ventricular response. Impression: Persistent atrial fibrillation since associated with symptoms of weakness and fatigue. Despite rate control he continues to feel poorly. He is appropriately anticoagulated. Would recommend cardioversion today to improve symptoms with continued clinical follow-up. Considerations for pulmonary artery isolation. Risk and benefits of cardioversion were discussed with the patient his . He is well-versed. Will proceed here in the emergency department hope for early discharge.
[2017-02-01 15:47] LABS: % IMMATURE GRANULYOCYTES 0.3 % (0.0-1.1); ABSOLUTE IMMATURE GRANULOCYTES 0.02 10^3/uL (0.00-0.10); ADD DIFF? NO; ADD MORPH? NO; ADD SCAN? NO; ATYPICAL LYMPHOCYTE FLAG 30 (0-99); FRAGMENT RBC FLAG 0 (0-99); HEMOGLOBIN 12.7 g/dL (13.7-17.5); LEFT SHIFT FLG 0 (0-99); LIPEMIA HEMOLYSIS FLAG 90 (0-99); MEAN CELL HEMOGLOBIN 33.1 pg (27.9-34.1); MEAN CELL HEMOGLOBIN CONCENTR. 36.3 g/dL (32.4-36.7); MEAN CELL VOLUME 91.1 fL (81.5-99.8); MEAN PLATELET VOLUME 10.9 fL (8.7-11.7); PLATELET CLUMPS FLAG 30 (0-99); PLATELET COUNT 102 10^3/uL (150-400); RED BLOOD CELL COUNT 3.84 10^6/uL (4.40-6.38); RED CELL DISTRIBUTION WIDTH 12.9 % (11.5-15.2)
[2017-02-01 16:04] LABS: ANION GAP 13 mEq/L (8-16); CALCIUM 9.2 mg/dL (8.5-10.4); CARBON DIOXIDE 19 mEq/l (22-31); CHLORIDE 104 mEq/L (97-110); CREATININE 2.2 mg/dL (0.7-1.3); GLOMERULAR FILTRATION RATE 30; GLUCOSE 115 mg/dL (70-100); MAGNESIUM 2.4 mg/dL (1.6-2.3); POTASSIUM 5.4 mEq/L (3.5-5.2); SODIUM 136 mEq/L (134-144)
[2017-02-01] MEDS ORDERED: KETAMINE 100 MG/10 ML SYR ONE (16:36)
[2017-02-01] MEDS ORDERED: KETAMINE 100 MG/10 ML SYR IVP ONE (16:37)
[2017-02-01] MEDS ORDERED: PROPRANOLOL HCL 1 MG/ML VIAL IV ONE (16:40)
[2017-02-01] MEDS ORDERED: PROPOFOL 200 MG/20 ML VIAL ONE (16:41)
--- NOTE | 2017-02-01 17:05 | CPEKG ---
Heart Rate: 66 RR Interval: 909 P-R Interval: 204 QRSD Interval: 108 QT Interval: 448 QTC Interval: 470 P [place]: 70 QRS [place]: 0 T Wave [place]: 72 EKG Severity - ABNORMAL ECG - EKG Impression: SINUS RHYTHM EKG Impression: CONSIDER RIGHT VENTRICULAR HYPERTROPHY EKG Impression: INFERIOR INFARCT, AGE INDETERMINATE EKG Impression: LATERAL INFARCT, AGE INDETERMINATE Electronically Signed By: Giancarlo Muñoz 01-Feb-2017 20:16:29
[2017-02-01] MEDS ORDERED: DIGOXIN 125 MCG TAB PO ONE (17:08)
[2017-02-01] MEDS ORDERED: NS 1,000 ML IV SCH (17:15)
[2017-02-01 17:18] LABS: MAGNESIUM 2.3 mg/dL (1.6-2.3)
[2017-02-01] MEDS ORDERED: FUROSEMIDE 20 MG/2 ML VIAL IVP ONE (17:50)
--- NOTE | 2017-02-01 18:26 | CPR ---
[f rep st] NONINVASIVE CARDIAC PROCEDURE REPORT DATE OF PROCEDURE: 02/01/2017 PROCEDURE: Cardioversion for atrial fibrillation. ANESTHESIA: Per Dr. Muñoz. DESCRIPTION OF PROCEDURE: After obtaining informed consent, patient was sedated by Dr. Muñoz with propofol. The patient was administered a synchronized shot at 200 watt seconds, in a synchronized fashion with synagogue of sinus rhythm. CONCLUSIONS: Successful cardioversion from atrial fibrillation to sinus rhythm. The patient will be admitted to the hospital with renal insufficiency, anemia, for gentle hydration and readjustment of heart failure medications. Questions were answered with his . He will be o bserved overnight. We will consider medicine consultation for thrombophlebitis and need for antibio tics. /[id number]/MODL
[2017-02-01] MEDS: CARVEDILOL 6.25 MG TAB PO SCH (21:39)
[2017-02-01 21:40] LABS: INR 2.97 (0.83-1.16); PROTIME(PATIENT) 31.3 SEC (12.0-15.0)
[2017-02-01] MEDS: hydrALAZINE 25 MG TAB PO SCH (21:40)
[2017-02-01] MEDS ORDERED: D5W IV SCH (22:00)
[2017-02-01] MEDS ORDERED: CEFAZOLIN IV SCH (22:00)
[2017-02-01] MEDS: WARFARIN SODIUM 5 MG TAB PO SCH (22:49)
[2017-02-01] MEDS: clonazePAM 0.5 MG TAB PO PRN (23:16)
[2017-02-01 23:31] LABS: COLOR YELLOW; LEUKOCYTE ESTERASE,URINE NEGATIVE (NEGATIVE); NITRITE,URINE NEGATIVE (NEGATIVE)
[2017-02-02] MEDS: hydrALAZINE 25 MG TAB PO SCH ×4 (05:56→20:45)
[2017-02-02] MEDS: ISOSORBIDE DINITRATE 10 MG TAB PO SCH ×3 (06:00→15:05)
[2017-02-02 07:26] LABS: INR 3.1 (0.83-1.16); PROTIME(PATIENT) 32.4 SEC (12.0-15.0)
[2017-02-02] MEDS ORDERED: ACETAMINOPHEN 325 MG TAB PO PRN (07:27)
--- NOTE | 2017-02-02 07:32 | SOAPPROG ---
MARCIO Progress Note Assessment/Plan: Assessment: 1. Acute on chronic systolic heart failure in the setting of non compaction cardiomyopathy. 2. Recurrent paroxysmal atrial fibrillation. 3. Chronic renal insufficiency 4. Recurrent ventricular tachycardia. s/ p Placement of ICD Impression: Significantly improved overnight after cardioversion to sinus rhythm and with gentle hydration. Chemistries pending, echocardiogram pending. Patient is maintaining sinus rhythm on oral amiodarone. He remains appropriately anticoagulated. We have resumed his heart failure medications at reduced dosage in light of elevated creatinine at 2.2. Plan: Await consultation by the EP service today about long-term strategy for oral anti rhythmic therapy versus ablation. Slow adjustment of heart failure medications with weekly follow-up. At this point will hold PAVITHRA-inhibitor. Continue low-dose Aldactone with Isordil hydralazine for afterload reduction. Plan for discharge later today. 02/02/17 07:29 02/02/17 07:33 Subjective: Feeling considerably better after cardioversion last night. He presented with 2 /10 quality of life he is currently up to 7/10. He did continue to have mild orthopnea last evening. He denies chest pain, syncope, near syncope. Consultation was obtained with patient's primary front end loader operator Dr. Marion. Awaiting consultation with Dr. Montiel. Objective: Medications Generic Name Dose Route Start Last Admin Trade Name Freq PRN Reason Stop Dose Admin Hydralazine HCl 25 mg 02/01/17 21:00 02/02/17 05:56 Apresoline PO 07/31/17 20:59 25 mg QID [facility] Amiodarone HCl 200 mg 02/02/17 09:00 Amiodarone Hcl PO 08/01/17 08:59 DAILY [facility] Atorvastatin Calcium 20 mg 02/02/17 21:00 Lipitor PO 08/01/17 20:59 HS [facility] Carvedilol 12.5 mg 02/01/17 18:00 02/01/17 21:39 Coreg PO 07/31/17 17:59 12.5 mg BIDMEAL [facility] Digoxin 125 mcg 02/02/17 09:00 Lanoxin PO 08/01/17 08:59 DAILY [facility] Furosemide 20 mg 02/02/17 09:00 Lasix PO 08/01/17 08:59 DAILY [facility] Isosorbide Dinitrate 10 mg 02/02/17 07:00 02/02/17 06:00 Isosorbide Dinitrate PO 08/01/17 06:59 10 mg TIDNITRATE [facility] Warfarin Sodium 1 each 02/01/17 17:15 Warfarin Pharmacy To Dose [facility] [place] 07/31/17 17:14 AD [facility] Protocol Vital Signs Temp Pulse Resp BP Pulse Ox 36.6 C 95 20 95/64 L 99 02/02/17 04:00 02/02/17 04:00 02/02/17 04:00 02/02/17 04:00 02/02/17 04:00 02/01/17 02/02/17 02/03/17 05:59 05:59 05:59 Intake Total 1110 Output Total 180 Balance 930 PT 32.4 SEC (12.0-15.0) H 02/02/17 07:10 INR 3.10 (0.83-1.16) H 02/02/17 07:10 Telemetry reveals sinus rhythm. Physical Exam - Physical Exam General Appearance: alert, no apparent distress EENT: PERRL/EOMI, normal ENT inspection Neck: non-tender, full range of motion Respiratory: chest non-tender, lungs clear Cardiac/Chest: normal peripheral pulses, regular rate, rhythm, No edema, No gallop, No JVD Abdomen: normal bowel sounds, non-tender, soft Lymphatic: no adenopathy Extremities: normal range of motion, No pedal edema, No calf tenderness Neuro/Psych: no motor/sensory deficits, alert, normal mood/affect ICD10 Worksheet Patient Problems: Problems Problem Status Onset Atrial fibrillation Acute Atrial fibrillation status post cardioversion Acute Renal insufficiency Acute Atrial fibrillation Acute Chronic Disease Mgmt/Transitional Care Acute Chronic systolic CHF (congestive heart failure) Acute Systolic CHF, acute on chronic Acute Review of Systems - Review of Systems Constitutional: denies: chills, fever, malaise EENTM: no symptoms reported Respiratory: no symptoms reported Cardiac: no symptoms reported Gastrointestinal/Abdominal: no symptoms reported Genitourinary: no symptoms Musculoskelatal: no symptoms Skin: no symptoms Neurological: no symptoms Hematologic/Lymphatic: no symptoms reported
[2017-02-02 07:37] LABS: ALANINE AMINOTRANSFERASE 142 IU/L (21-72); ALBUMIN 3.8 g/dL (3.5-5.0); ALKALINE PHOSPHATASE 78 IU/L (38-126); ASPARTATE AMINOTRANSFERASE 176 IU/L (17-59); BILIRUBIN,TOTAL 1.6 mg/dL (0.1-1.4); CALCIUM 8.7 mg/dL (8.5-10.4); CARBON DIOXIDE 22 mEq/l (22-31); CHLORIDE 104 mEq/L (97-110); CREATININE 2.2 mg/dL (0.7-1.3); GLOMERULAR FILTRATION RATE 30; GLUCOSE 79 mg/dL (70-100); SODIUM 134 mEq/L (134-144)
[2017-02-02 07:38] LABS: ANION GAP 8 mEq/L (8-16); POTASSIUM 4.8 mEq/L (3.5-5.2)
[2017-02-02] MEDS: CARVEDILOL 6.25 MG TAB PO SCH ×2 (08:47→18:18)
[2017-02-02] MEDS: AMIODARONE HCL 200 MG TAB PO SCH (08:48)
[2017-02-02] MEDS: DIGOXIN 125 MCG TAB PO SCH (08:48)
[2017-02-02] MEDS: lamoTRIgine 25 MG TAB PO SCH (08:49)
[2017-02-02] MEDS: ALLOPURINOL 100 MG TAB PO SCH (08:49)
[2017-02-02] MEDS ORDERED: FUROSEMIDE 40 MG TAB PO SCH (09:00)
--- NOTE | 2017-02-02 10:04 | ECHO ---
[id number] + + [address] : : [place] [address] : : [phone] + + Adult Echocardiographic Report + + :Name: BASIL SALVADOR Kevan Date: 02/02/2017 08:54 AM : : Hospital Admission Number: [id number] Location: 221: :: 1945 Gender: Male Height: 73 in : :Age: 71 yrs Race: BAA,Black or Jonelle Weight: 195 lb : :Reason For Study: Non-compaction : : BSA: 2. 1 meters2 : :History: Pacer : + + MMode/2D Measurements \T\ Calculations IVSd: 0.93 cm LVIDd: 7.4 cm EDV(Teich): 289.3 ml MV Diam: 4.8 cm LVPWd: 0.76 cm Ao root diam: LVOT diam: 2.3 cmLVLd ap4: 10.2 cm SV(MOD-sp4): 3.3 cm LVOT area: EDV(MOD-sp4): 53.0 ml LA dimension: 4.2 cm2 300.0 ml 5.3 cm LVLs ap4: 9.2 cm ESV(MOD-sp4): 247.0 ml EF(MOD-sp4): 17.7 % Normal Measurement Values: + + :LVIDd (3.5-5.7cm) IVSd (0.6-1.1cm) LVPWd (0.6-1.1cm) Aortic Root (2.0-3.7cm)Left Atrium (1.5-4.0cm): :LV Vol(d) (76-115ml) LV Vol(s) (29-48ml) Ejec Fraction (50-65%)PV Mohamud (0.6- 1.2m/s) TV Mohamud (0.4-1.0m/s) : :MV E Mohamud (0.8-1.0m/s)MV A Mohamud (0.3-1.0m/s)LVOT Mohamud (0.7-1.2m/s) Asc Ao Mohamud ( 0.9-1.8m/s) : + + Doppler Measurements \T\ Calculations MV V2 mean: Ao mean PG: LV V1 max: MR max mohamud: 38.4 cm/sec 1.5 mmHg 63.2 cm/sec 380.9 cm/sec MV mean PG: Ao V2 mean: LV V1 max PG: MR max P.70 mmHg 59.6 cm/sec 1.6 mmHg 58.0 mmHg MV V2 VTI: 21.2 cm Ao V2 VTI: 14.3 cm LV V1 mean PG: MV area (1 diam): NAZANIN(I,D): 3.1 cm2 0.94 mmHg 18.3 cm2 LV V1 mean: 45.2 cm/sec MVA(VTI): 2.1 cm2 LV V1 VTI: 10.7 cm MV Flow area(1diam): 18.3 cm2 MR(RF 1 diam): 5.0 %SV(MV 1 diam): TR max mohamud: RF(MV,Ao)(1 diam): 387.9 ml 338.0 cm/sec 0.69 SI(MV 1 diam): TR max PG: RF(MV,LVOT) 182.2 ml/m2 45.7 mmHg (1diam): 0.88 SV(LVOT): 44.8 ml RAP systole: 10.0 mmHg RVSP(TR): 55.7 mmHg Left Ventricle The left ventricle is severely dilated. There is normal left ventricular wall thickness. Left ventricular systolic function is normal. Ejection Fraction = 10-15%. Left ventricular systolic function is severely reduced. Right Ventricle The right ventricle is normal in size and function. There is a pacemaker lead in the right ventricle. Atria The left atrium is severely dilated. The right atrium is moderate to severely dilated. The interatrial septum is intact with no evidence for an atrial septal defect. Mitral Valve The mitral valve is normal in structure and function. There is no evidence of mitral valve prolapse. There is no mitral valve stenosis. There is severe mitral regurgitation. Tricuspid Valve Normal tricuspid valve. There is moderate tricuspid regurgitation. Right ventricular systolic pressure is 56mmHg. There is Doppler evidence for mild pulmonary hypertension. Aortic Valve The aortic valve is trileaflet. The aortic valve opens well. Mild aortic calcification. There is no aortic stenosis. Trace aortic regurgitation. Pulmonic Valve The pulmonic valve is normal in structure and function. There is no pulmonic valvular regurgitation. Great Vessels The aortic root is normal size. Pericardium/Pleural There is no pericardial effusion. Conclusion A complete two-dimensional transthoracic echocardiogram was performed (2D, M-mode, Doppler and color flow Doppler). Left ventricular systolic function is normal. The left ventricle is severely dilated. Ejection Fraction = 10-15%. Left ventricular systolic function is severely reduced. There is a pacemaker lead in the right ventricle. The left atrium is severely dilated. The right atrium is moderate to severely dilated. There is severe mitral regurgitation. There is moderate tricuspid regurgitation. Right ventricular systolic pressure is 56mmHg. There is Doppler evidence for mild pulmonary hypertension. Mild aortic calcification. Trace aortic regurgitation. Final Reading Physician: Aydin Morelos signed on 02/02/2017 10:02 AM Ordering Physician: KAREN ROBISON Performed By: Jane Boone, RDCS
[2017-02-02] MEDS: FUROSEMIDE 40 MG/4 ML VIAL IVP SCH (15:05)
--- NOTE | 2017-02-02 16:20 | SOAPPROG ---
MARCIO Progress Note Assessment/Plan: Assessment: CHF consultation performed and dictated. 71 y/o AA man with acute on chronic non -ischemic systolic CHF with LVEF 13%, severe MR and class IV NYHA sx probably recently exacerbated by VT and afib. He appears moderate volume overloaded. REC: 1)IV lasix 40mg BID for 2-3 doses then back to PO Lasix. 2)no ACEI or aldactone for now as ARF on CRI. 3)agree with upgrade to BIVAICD next Monday. Would do a swan susi catheter at time of procedure to evaluate PAP, PCWP, CVP and CO/CI. 4)may need AV zack ablation in near future if has more afib with RVR as he seems to develop tachycardia mediated LV dysfunction fast. 5)continue on Coreg, Digoxin, Isordil and Hydralazine. 6)if re-decompensates, he is young enough to be reconsider for OHT or DT-VAD or bridge to transplant LVAD. 7)thanks, will follow with you daily. 02/02/17 16:16 Objective: Vital Signs Temp Pulse Resp BP Pulse Ox 36.3 C 71 23 H 108/74 97 02/02/17 16:00 02/02/17 16:00 02/02/17 16:00 02/02/17 16:00 02/02/17 16:00 PT 32.4 SEC (12.0-15.0) H 02/02/17 07:10 INR 3.10 (0.83-1.16) H 02/02/17 07:10 ICD10 Worksheet Patient Problems: Problems Problem Status Onset Atrial fibrillation Acute Atrial fibrillation status post cardioversion Acute Renal insufficiency Acute Atrial fibrillation Acute Chronic Disease Mgmt/Transitional Care Acute Chronic systolic CHF (congestive heart failure) Acute Systolic CHF, acute on chronic Acute
--- NOTE | 2017-02-02 17:14 | GCON ---
[f rep st] CONSULTATION CONGESTIVE HEART FAILURE CONSULT. DATE OF CONSULTATION: 02/02/2017 REASON FOR CONSULTATION: Evaluate gentleman with acute on chronic systolic heart failure and dyspnea at rest. HISTORY OF PRESENT ILLNESS: I was asked by Dr. Hubert Dennis to consult for the above reasons. The patient is a 71-year-old gentleman with the following cardiac history: In March of 2015 he developed sudden heart failure. There was a question about a viral infection while working in the [employer] 2-3 months beforehand and he also had atrial flutter with rapid ventricular rate, and it was thought this could be tachycardia-induced. He received an atrial flutter ablation and got his first AICD in 2005. He has been living with an ejection fraction of 10% to 15% with moderate to severe mitral regurgitation. He has been seen since 2014 at [facility] and felt to be too healthy for a transplant. Up until 6 weeks ago he was able to walk 1-2 miles without difficulty. Over the last 2 weeks he has had problems with ventricular tachycardia and then atrial fibrillation. A heart catheterization done on 01/28/2017 showed normal coronary arteries with an LVEDP of 29. No right heart catheterization was done. An echo done on 02/02 demonstrated an LVEF of 13%, with normal RV function. The LVEDD was 7.4 cm. He had severe mitral regurgitation, moderate tricuspid insufficiency, and estimated PA systolic pressure of 56 mmHg. There was trivial aortic insufficiency with no aortic stenosis. He was cardioverted to sinus rhythm yesterday, and is starting to feel better. He still is short of breath at rest. He feels bloated. He denies chest pain or syncope. He has 3-pillow orthopnea and has had palpitations until today. PAST MEDICAL HISTORY: Chronic nonischemic systolic heart failure with an LVEF of 10% to 15%, ventricular tachycardia, paroxysmal atrial fibrillation, TIA in 2010. PAST SURGICAL HISTORY: AICD and atrial flutter ablation. CURRENT MEDICATIONS: Allopurinol 100 mg per day, amiodarone 200 mg per day, Atorvastatin 20 mg per day, Coreg 12.5 mg two times daily, digoxin 0.125 mg per day, Lasix 20 mg per day, Hydralazine 25 mg four times daily, Isordil 10 mg three times daily, Coumadin. Recent medicines held, Altace and Aldactone. ALLERGIES: Levofloxacin. SOCIAL HISTORY: Patient is . He is retired . He does have moderate alcohol use with 2-3 drinks per day. He quit alcohol 2 weeks ago. He denies tobacco use. FAMILY HISTORY: Unremarkable for premature coronary artery disease. REVIEW OF SYSTEMS: The patient reports no fevers, chills, weight gain or weight loss. He has no GI bleed symptoms such as hematemesis, melena, or bright red blood per rectum. Rest of 10-point review of systems is negative. PHYSICAL EXAM: VITAL SIGNS: Afebrile, pulse 70 and paced, blood pressure 93/74 , respirations 20, weight 88.5 kg. GENERAL: A normal-appearing gentleman in no acute distress without chest pain, or using excess respiratory muscles. HEENT: Eyes, pupils equal and reactive to light. ENT, oral mucosa with no cyanosis. NECK: Jugular venous pressure elevated at 9 to 10 cm. Carotid pulses 2+ bilaterally with no obvious bruits. Neck with no nuchal rigidity. LUNGS: Clear to auscultation bilaterally without rales, rhonchi, or wheezing. HEART: Enlarged PMI, regular rate and rhythm, with a 2/6 nonradiating systolic murmur, and no S3. ABDOMEN: Soft and nontender, no hepatosplenomegaly. No ascites, no guarding or rebound. No bruit heard over his abdominal or renal arteries. EXTREMITIES: With 2+ peripheral pulses including femoral and pedal pulses, no edema noted. MUSCULOSKELETAL: No scoliosis. NEUROLOGIC: Normal affect and mood. SKIN: No bleeding or cyanosis. LABORATORY DATA: INR 3.10, sodium 134, potassium 4.8, chloride 104, bicarb 22, BUN 44, creatinine 2.2, glucose 79, TSH 2.2, total bilirubin is 1.6, AST 176, ALT 142. NT proBNP level 20,400, and troponin 0.04. IMPRESSION: A 71-year-old gentleman with probably initially a postviral or tachy-induced cardiomyopathy with now acute on chronic nonischemic systolic heart failure with a left ventricular ejection fraction of 13% and class 4 [place] [employer] symptoms. He still appears moderately volume overloaded. I wonder if his acute decompensation over the last 3 weeks was related to his arrhythmias, both ventricular tachycardia and atrial fibrillation. RECOMMENDATIONS: 1. Would stop p.o. Lasix and start on Lasix 40 mg IV q.12 hours for 2-3 doses. 2. Rest of medications without change. 3. Would continue to hold Altace and Aldactone until his renal function recovers. 4. I am hopeful that if we can control his arrhythmias he will stabilize. 5. Agree with upgrade to biventricular AICD next week, would do a right heart catheterization with [place] hemodynamics during that procedure. If he continues to have refractory atrial fibrillation with RVR, would consider AV node ablation. 6. He is young enough that if his arrhythmias cannot be controlled and he develops worsening heart failure, would consider transfer back to [facility] for consideration of bridge to transplant VAD, or emergent heart transplant workup. /[id number]/MODL MTDD
--- NOTE | 2017-02-02 19:40 | PDCARPN ---
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 He is presenting with heart failure, ventricular tachycardia and atrial fibrillation. His original presentation was atrial flutter with rapid ventricular response and is status post atrial flutter ablation more than 5 years ago without recurrence. Now he is presenting with worsening heart failure symptoms. He underwent cardioversion by Dr. Hubert Dennis yesterday. He has had ventricular tachycardia which has been appropriately treated by his device. I had a 45 minute conversation with the patient, and daughter this afternoon. We discussed overall prognosis which is guarded. His QRS duration is 135 milliseconds on EKG, his left ventricular ejection fraction is 10-15%, NYHA class 3. He meets criteria for biventricular ICD implantation. Risks with this procedure are worsening of renal insufficiency and possibility of needing dialysis, other risks of the procedure like pneumothorax, cardiac perforation, lead dislodgement, infection, bleeding etc were discussed with him and his family. We also discussed that in rare instances ventricular tachycardia can get worse with implantation of LV lead, he has new Q-waves in the lateral leads , this is a possibility in his situation. As regards his renal insufficiency, I have talked with Dr. Mauro Lott who will manage him in peripreprocedure time frame . He is not a good candidate for pulmonary vein isolation procedure and I doubt that he would be able to withstand the procedure , I have similar feelings about ventricular tachycardia ablation. We will consider both if we cannot manage him with biventricular pacing and medical therapy. Continue amiodarone at this time for his ventricular tachycardia. We plan biventricular ICD implantation on Monday. His INR today is 3. He will stop his warfarin on Monday and Monday, no Lovenox bridging is required. He understands that there is risk of stroke in the perioperative period. We also discussed AV node ablation procedure at length. We discussed that while this does not address atrial fibrillation, it will help control his ventricular rates during atrial fibrillation episodes. It will however make him pacemaker dependent. If biventricular pacing does not help him, he is likely a candidate for left ventricular assist device. Have discussed this with Dr. Humphrey Sanchez. I have discussed his case with Drs. Hubert DennisHumphrey joe. Objective: Vital Signs (8 Hrs) Pulse 02/02/17 18:18 68 Intake/Output (24 Hrs) 02/01/17 02/02/17 02/03/17 11:59 11:59 11:59 Intake Total 1000 Output Total 450 Balance 550 Intake: Oral (ml) 1000 Output: Urine (ml) 450 Urinal 450 Other: Number of Voids Urinal 1 Number of Stools Urinal 1 Result Diagrams: 02/01/17 15:35 02/02/17 07:10 ICD10 Worksheet Patient Problems: Problems Problem Status Onset Systolic CHF, acute on chronic Acute Chronic systolic CHF (congestive heart failure) Acute Atrial fibrillation Acute Chronic Disease Mgmt/Transitional Care Acute Atrial fibrillation Acute Atrial fibrillation status post cardioversion Acute Renal insufficiency Acute
[2017-02-02] MEDS: clonazePAM 0.5 MG TAB PO PRN (20:44)
[2017-02-02] MEDS: WARFARIN SODIUM 5 MG TAB PO SCH (20:44)
[2017-02-02] MEDS ORDERED: DIVALPROEX ER 250 MG TAB PO SCH (21:00)
[2017-02-02] MEDS ORDERED: ATORVASTATIN CALCIUM 20 MG TAB PO SCH (21:00)
[2017-02-02] MEDS ORDERED: DOCUSATE SODIUM 100 MG CAP PO SCH (21:00)
[2017-02-03] MEDS: hydrALAZINE 25 MG TAB PO SCH ×2 (06:23→13:02)
[2017-02-03] MEDS: ISOSORBIDE DINITRATE 10 MG TAB PO SCH ×2 (06:23→10:52)
[2017-02-03 07:53] LABS: HEMATOCRIT 30.1 % (40.0-51.0); HEMOGLOBIN 10.9 g/dL (13.7-17.5); MEAN CELL HEMOGLOBIN 32.5 pg (27.9-34.1); MEAN CELL HEMOGLOBIN CONCENTR. 36.2 g/dL (32.4-36.7); MEAN CELL VOLUME 89.9 fL (81.5-99.8); RED BLOOD CELL COUNT 3.35 10^6/uL (4.40-6.38); RED CELL DISTRIBUTION WIDTH 12.4 % (11.5-15.2)
[2017-02-03 08:12] LABS: ALANINE AMINOTRANSFERASE 132 IU/L (21-72); ALBUMIN 3.4 g/dL (3.5-5.0); ALKALINE PHOSPHATASE 76 IU/L (38-126); ANION GAP 8 mEq/L (8-16); ASPARTATE AMINOTRANSFERASE 103 IU/L (17-59); BILIRUBIN,TOTAL 1.9 mg/dL (0.1-1.4); CALCIUM 8.4 mg/dL (8.5-10.4); CARBON DIOXIDE 21 mEq/l (22-31); CHLORIDE 104 mEq/L (97-110); CREATININE 1.9 mg/dL (0.7-1.3); GLOMERULAR FILTRATION RATE 35; GLUCOSE 78 mg/dL (70-100); POTASSIUM 4.5 mEq/L (3.5-5.2); SODIUM 133 mEq/L (134-144); TOTAL PROTEIN 6.2 g/dL (6.3-8.2)
[2017-02-03] MEDS: FUROSEMIDE 40 MG/4 ML VIAL IVP SCH (08:13)
[2017-02-03] MEDS: CARVEDILOL 6.25 MG TAB PO SCH (08:13)
[2017-02-03 08:14] LABS: INR 3.67 (0.83-1.16); PROTIME(PATIENT) 37.1 SEC (12.0-15.0)
[2017-02-03] MEDS: AMIODARONE HCL 200 MG TAB PO SCH (08:14)
[2017-02-03] MEDS: lamoTRIgine 25 MG TAB PO SCH (08:14)
[2017-02-03] MEDS: ALLOPURINOL 100 MG TAB PO SCH (08:14)
[2017-02-03] MEDS: DIGOXIN 125 MCG TAB PO SCH (08:14)
[2017-02-03 08:15] VITALS: PULSE 60
[2017-02-03] MEDS ORDERED: SPIRONOLACTONE 25 MG TAB PO SCH (09:00)
--- NOTE | 2017-02-03 09:29 | CPEKG ---
Heart Rate: 66 RR Interval: 909 P-R Interval: 188 QRSD Interval: 108 QT Interval: 444 QTC Interval: 466 P [place]: 72 QRS [place]: 153 T Wave [place]: 74 EKG Severity - ABNORMAL ECG - EKG Impression: SINUS RHYTHM EKG Impression: VENTRICULAR PREMATURE COMPLEX EKG Impression: PROBABLE RIGHT VENTRICULAR HYPERTROPHY EKG Impression: LATERAL INFARCT, AGE INDETERMINATE Electronically Signed By: Jude Baker 03-Feb-2017 10:59:32
--- NOTE | 2017-02-03 10:34 | SOAPPROG ---
MARCIO Progress Note Assessment/Plan: Assessment: 71 y/o AA man with acute on chronic non-ischemic systolic CHF with LVEF 13%, severe MR and class IV NYHA sx probably recently exacerbated by VT and afib. He is doing better having diuresed 3-4lbs and serum creatinine 2.2 to 1.9. He appears more euvolemic. PLAN: 1)change back to Lasix 40mg PO qam. 2)decrease Aldactone to 12.5mg PO qam. 3)no Altace upon discharge. 4)no coumadin upon discharge. 5)per Renal's service instrustions... Mucomyst 1200mg PO BID starting Monday AM. 6)no Lasix Monday AM. 7)elective EP procedure with swan susi catheter hemodynamics and upgrade to BIVAICD . 8)referral back to Dr. Immanuel Stevens at [facility] for OHT and VAD evaluation if arrhythmias recur and re-decompensates from CHF standpoint. 02/03/17 10:29 Subjective: feels better. No more orthopnea or rest dyspnea. Denies CP, palpitations, near syncope. Ambulates 50-100ft okay. Objective: Vital Signs Temp Pulse Resp BP Pulse Ox 37.0 C 60 19 99/70 L 97 02/03/17 08:00 02/03/17 08:14 02/03/17 08:00 02/03/17 08:13 02/03/17 08:00 Laboratory Results 02/03/17 07:35 02/03/17 07:35 02/02/17 02/03/17 02/04/17 05:59 05:59 05:59 Intake Total 1225 300 Output Total 1075 2250 Balance 150 -1950 PT 37.1 SEC (12.0-15.0) H 02/03/17 07:35 INR 3.67 (0.83-1.16) H 02/03/17 07:35 Physical Exam - Physical Exam EENT: PERRL/EOMI Neck: non-tender Respiratory: lungs clear Cardiac/Chest: regular rate, rhythm, systolic murmur (1/6 MARY heard), No gallop , No JVD Peripheral Pulses: 2+: carotid (R), carotid (L), femoral (R), femoral (L), dorsalis-pedis (R), dorsalis-pedis (L) Abdomen: non-tender, No organomegaly, No guarding, No ascites Skin: warm/dry Extremities: No pedal edema Neuro/Psych: alert, oriented x 3 ICD10 Worksheet Patient Problems: Problems Problem Status Onset Atrial fibrillation Acute Atrial fibrillation status post cardioversion Acute Renal insufficiency Acute Atrial fibrillation Acute Chronic Disease Mgmt/Transitional Care Acute Chronic systolic CHF (congestive heart failure) Acute Systolic CHF, acute on chronic Acute
[2017-02-03 10:50] VITALS: BP 103/64; RESP 24; TEMP 98.5; O2SAT 98
--- NOTE | 2017-02-03 11:08 | SOAPPROG ---
MARCIO Progress Note Assessment/Plan: Assessment:Plan: Increased creatinine-prior 24 hour urine collections with preserved kidney function -creatinine has ranged from 1.6 to 2 since 2002 -presented with some decompensation related to afib and CHF -now better -plan for BiV pacer due to underlying CM -should be low risk for BETTYE -check urine protein -will start mucomyst tomorrow in anticipation of ventricular lead placement on Monday -avoid PAVITHRA-i/ARB -I took NS off his medication list -currently on diuretics -daily labs 02/03/17 11:03 Objective: Vital Signs Temp Pulse Resp BP Pulse Ox 36.9 C 60 24 H 103/64 98 02/03/17 10:48 02/03/17 10:48 02/03/17 10:48 02/03/17 10:48 02/03/17 10:48 Laboratory Results 02/03/17 07:35 02/03/17 07:35 02/02/17 02/03/17 02/04/17 05:59 05:59 05:59 Intake Total 1110 1785 300 Output Total 180 1075 2250 Balance 930 710 -1950 PT 37.1 SEC (12.0-15.0) H 02/03/17 07:35 INR 3.67 (0.83-1.16) H 02/03/17 07:35 ICD10 Worksheet Patient Problems: Problems Problem Status Onset Atrial fibrillation Acute Atrial fibrillation status post cardioversion Acute Renal insufficiency Acute Atrial fibrillation Acute Chronic Disease Mgmt/Transitional Care Acute Chronic systolic CHF (congestive heart failure) Acute Systolic CHF, acute on chronic Acute
--- NOTE | 2017-02-03 12:57 | GCON ---
[f rep st] CONSULTATION NEPHROLOGY CONSULTATION DATE OF CONSULTATION: 02/03/2017 REASON FOR CONSULTATION: 1. Increased creatinine. 2. Patient needing to undergo contrast study. RECOMMENDATIONS: 1. To remove IV fluids from his medication list. 2. Continue Lasix. 3. Daily labs. 4. Check urine protein. 5. Start Mucomyst starting tomorrow in anticipation of his contrast study on 02/06/2017. HISTORY: The patient is a very pleasant 71-year-old gentleman I have been asked to consult on by Kassidy Hughes, nurse practitioner. He presented on the with weakness. He was found to be in atrial fibrillation with decompensated congestive heart failure. He was treated by Cardiology and has returned to a sinus rhythm. The plan is for him to undergo placement of a second ventricular le ad due to his underlying cardiomyopathy. His baseline ejection fraction has been right about 25%. Per report, his current EF has gone down to 10% to 15%. He has chronic nonischemic heart failure with underlying spongiform cardiomyopathy. He has been fol lowed by Dr. Sanchez and Dr. Lott. It sounds like he has had problems going back to around 2002 or so. He got his first AICD back in 2005 when he underwent an ablation procedure for atrial flutte r. He has moderate to severe mitral regurgitation. He has an underlying elevated creatinine that has ranged anywhere from 1.6 to 2. This has been stab le since 2002. Interestingly, he has had a normal creatinine clearance identified on 24-hour urine collections in spite of his estimated GFR being around 35 to 40. He has not had any meaningful prot einuria in the past. It is felt that part of his elevated creatinine is due to his underlying poor cardiac output. PAST MEDICAL HISTORY: Gout, depression, hyperlipidemia, anemia, arrhythmias with AFib and Aflutter, spongiform cardiomyopathy, chronic kidney disease with elevated creatinine, mild hyperparathyroidis m, and mitral regurgitation. OUTPATIENT MEDICATIONS: Include digoxin 0.125 mg daily, carvedilol 12.5 mg twice daily, ramipril 5 mg at bedtime, Depakote ER 250 mg at bedtime, docusate, atorvastatin 20 mg daily, herbal supplement, calcium carbonate daily, warfarin, FiberCon, spironolactone 25 mg twice daily, Lamictal 25 mg daily , hydralazine 50 mg 3 times daily, isosorbide dinitrate 20 mg 3 times daily, acetaminophen, allopuri nol 100 mg daily, amiodarone 400 mg twice daily, Lasix 20 mg daily, clonazepam 0.5 mg daily, and vit vyas D2 50,000 units every 10 days. ALLERGIES: To Levaquin. SURGICAL HISTORY: Pacer placement and ablation. FAMILY HISTORY: Noncontributory. SOCIAL HISTORY: He is with 2 children. He is retired from the after working in [employer] for 21 years. He subsequently worked for [employer]. He is now retired. He stopped smoking in 1975. REVIEW OF SYSTEMS: Negative except for that included in the history of present illness. PHYSICAL EXAMINATION: VITAL SIGNS: He weighs 87.1 kilos, down 2 kilos from admission. He states h is base weight is about 193 at home. He is afebrile, with a temp of 36.9. Heart rate 60, respirati ons 24, blood pressure 103/64. APPEARANCE: No apparent distress. SKIN: Unremarkable. NEUROLOGIC : Grossly intact. HEENT: Atraumatic, normocephalic. NECK: Unremarkable. HEART: Regular, with a systolic murmur. LUNGS: Have rales at the bases, more prominent on the right. ABDOMEN: Exam is benign. Although he feels he has some fullness, I do not feel any hepatomegaly on today's examinat ion. Normal bowel sounds. No rebound. No guarding. EXTREMITIES: Show zero to trace edema at the ankles. Distal pulses are intact. LABORATORY DATA: Labs show a creatinine that has come down from 2.2, down to his baseline of 1.9. LFTs are coming down, with an AST coming down from 176 to 103. BNP was 20,000 on admission and now down to 6570. ASSESSMENT: Increased creatinine with history of normal GFR based on 24-hour urine collections. He has had stable serum creatinines that ranged from 1.6 to 2 going back to 2002. He has no proteinur ia. Although his recent 24-hour urine in 2014 appears normal, I would suspect that he probably does have some modest decline in renal function given his age. I would still classify him as him having stage 1 chronic kidney disease and not stage 3 as suggested by the estimated GFR. I think his risk of contrast nephropathy is low. Nonetheless, I would use prophylactic Mucomyst kristal or to any contrast procedure. I think given this information, I would strongly encourage Cardiology to proceed with this placement of the second ventricular lead, even if it requires higher than norm al levels of contrast to perform this successfully. I think he should be able to tolerate contrast without a problem. We will check his urine protein again to make sure there is no evidence of new p roteinuria that might modify his risk for contrast-induced nephropathy. A significant amount of time was spent counseling the patient regarding his current level of kidney function, the risks of contrast nephropathy, and the methods we have of measuring his true level of kidney function. He describes multiple 24-hour collections during his initial evaluations with Dr. Lott. I do not think those need to be repeated at this time. I would avoid PAVITHRA inhibitors and angiotensin receptor blockers acutely. I think once his renal func tion has stabilized, these agents can be resumed as an outpatient. I would wait to make sure he has not had any changes in his creatinine after contrast before doing so. Copy requested to: Dr. Jayro Maldonado /[id number]/MODL
--- NOTE | 2017-02-03 14:52 | GDS ---
[f rep st] DISCHARGE SUMMARY DISCHARGE DIAGNOSES: 1. Persistent atrial fibrillation, status post DC cardioversion. 2. Severe nonischemic cardiomyopathy, with LV noncompaction. EF of 13%. 3. History of systolic congestive heart failure. 4. Ventricular tachycardia with appropriate ICD therapies, with recent admission over for amiodarone loading. 5. Known severe mitral regurgitation. 6. Chronic kidney disease stage 3. PROCEDURES: 1. 02/01/2017, cardioversion. 2. Superficial thrombophlebitis in the cephalic vein on this admission. 3. 02/02/2017, echocardiogram which shows severely dilated left ventricle, with an EF of 10% to 15% . LV systolic function is severely reduced, pacer lead in right ventricle, left atrium is severely dilated. The right atrium is moderately to severely dilated, there was severe MR and moderate TR. RVSP of 56 mmHg. PHYSICIANS: Dr. Dennis. Dr. Sanchez, [facility]F Clinic. Dr. Montiel, electrophysiology, and Dr. Myles of Ne phrology. BRIEF HISTORY: Please see dictated H and P for complete details. In brief, The patient is a 71-yea r-old male with chronic nonischemic systolic CHF, with LV systolic function of 15%, severe MR and cl ass III-IV heart failure symptoms, who had a recent admission for VT found on pacer checks. He also went into persistent atrial fibrillation around that time, with this, he has developed worsening he art failure. He was therefore admitted from clinic for cardioversion, as well as diuresis. With in crease in his Lasix dose he has diuresed 3-4 pounds. HOSPITAL COURSE BY PROBLEM: 1. Severe nonischemic cardiomyopathy with systolic CHF. Due to his widened QRS and worsening CHF s ymptoms, he will be upgraded to a Bi-V ICD on Monday. 2. Chronic kidney disease stage 3. Dr. Myles has seen and has made recommendations for Mucomyst p rior to his procedure. 3. Ventricular tachycardia. None was seen on his telemetry. He has been continued on his amiodaro ne. His dose will be reduced to 400 daily per protocol recommended by Dr. Montiel. 4. Hypotension. His hydralazine dosing and isosorbide dinitrate dosing have been decreased. PHYSICAL EXAM: VITAL SIGNS: On day of discharge: Blood pressure 103/64, heart rate of 60, respira tions 24, O2 saturation 98% on room air. GENERAL: He is a very pleasant male, in no apparent distr ess. EYES: PERRLA. HEART: Regular rate and rhythm. LUNGS: Clear. There is no peripheral edema . LABORATORY DATA: CBC with WBC 5.6, hemoglobin 10.9, hematocrit 30.1, platelet count 75. BMP with s odium 133, potassium 4.5, chloride 104, CO2 21, BUN 41, creatinine 1.9, glucose of 78. NT proBNP in itially was 20,400, and now down to 6570 on day of discharge. RESULTS PENDING: None. DIET: A low-salt diet recommended. He should also keep a 1500 mL fluid restriction. DISCHARGE MEDICATIONS: Please see med reconciliation. He can continue his vitamin D, Klonopin, rancho cium, FiberCon, Lipitor, allopurinol, Colace, Depakote, carvedilol, Lamictal. We are decreasing his amiodarone to 400 mg p.o. daily. His spironolactone has been decreased to 12.5 p.o. daily. His is osorbide dinitrate is decreased to 10 mg mg p.o. t.i.d. His hydralazine has been decreased to 25 q.i.d. He is stopping his ramipril. He wi ll start on N-acetylcysteine starting on Monday morning 1200 mg p.o. b.i.d. He is to take a dose on the day of his procedure. DISCHARGE INSTRUCTIONS: 1. Medications reviewed. 2. Return to the hospital on Monday for upgrade to a Bi-V ICD. Please note that greater than 30 minutes was spent on discharge and coordination of care. /[id number]/MODL
[2017-02-03] MEDS ORDERED: WARFARIN SODIUM 2.5 MG TAB PO SCH (22:00)
[2017-02-04] MEDS ORDERED: ERGOCALCIFEROL 50,000 I.UNIT CAP PO SCH (07:30)
[2017-02-04] MEDS ORDERED: ACETYLCYSTEINE 20% IH/PO 30 ML VIAL PO SCH (09:00)
== END 2017-02-03 14:00 | disposition home or self-care (01) | DRG 292 ==
LOC: OBSVTOIN 16:48 → INTOOBSV 16:48 → F2W 19:39 → OBSVTOIN 02-02 16:01 → INTOOBSV 02-02 16:01
PROVIDERS: ADMIT Internal Medicine Interventional Cardiology; ATTEND Internal Medicine Cardiovascular Disease
PROC: 5A2204Z Restoration of Cardiac Rhythm, Single (ICD-10-PCS; principal; 2017-02-01)
DX: I50.23 Acute on chronic systolic (congestive) heart failure (principal); I48.1 Persistent atrial fibrillation; I42.9 Cardiomyopathy, unspecified; I12.9 Hypertensive chronic kidney disease with stage 1 through stage 4 chronic kidney disease, or unspecified chronic kidney disease; N18.3 Chronic kidney disease, stage 3 (moderate); I34.0 Nonrheumatic mitral (valve) insufficiency; I80.8 Phlebitis and thrombophlebitis of other sites; E21.3 Hyperparathyroidism, unspecified; Z95.810 Presence of automatic (implantable) cardiac defibrillator; Z86.73 Personal history of transient ischemic attack (TIA), and cerebral infarction without residual deficits; E78.5 Hyperlipidemia, unspecified
CPT/HCPCS: J0690; J1800; J1940; J2704

== ENCOUNTER 2017-02-06 11:17 | Inpatient (IN) | payer OTHER ==
[2017-02-06] MEDS ORDERED: NS 1,000 ML IV ONE ×2 (11:48)
[2017-02-06] MEDS ORDERED: BACITRACIN IRRIGATION/NS 50,000 UNITS/1,000 ML BTL IRR ONE (11:48)
[2017-02-06] MEDS ORDERED: ceFAZolin 2 GM/DEXTROSE 100 ML IV ONE (11:48)
[2017-02-06 12:52] LABS: % IMMATURE GRANULYOCYTES 0.2 % (0.0-1.1); ABSOLUTE IMMATURE GRANULOCYTES 0.01 10^3/uL (0.00-0.10); ADD DIFF? NO; ADD MORPH? NO; ADD SCAN? NO; ATYPICAL LYMPHOCYTE FLAG 10 (0-99); FRAGMENT RBC FLAG 0 (0-99); HEMATOCRIT 33.1 % (40.0-51.0); HEMOGLOBIN 11.9 g/dL (13.7-17.5); LEFT SHIFT FLG 0 (0-99); LIPEMIA HEMOLYSIS FLAG 90 (0-99); MEAN CELL HEMOGLOBIN 32.8 pg (27.9-34.1); MEAN CELL VOLUME 91.2 fL (81.5-99.8); MEAN PLATELET VOLUME 10.7 fL (8.7-11.7); PLATELET CLUMPS FLAG 10 (0-99); PLATELET COUNT 104 10^3/uL (150-400); RED BLOOD CELL COUNT 3.63 10^6/uL (4.40-6.38)
[2017-02-06 12:57] LABS: ANION GAP 13 mEq/L (8-16); CARBON DIOXIDE 22 mEq/l (22-31); CHLORIDE 103 mEq/L (97-110); CREATININE 1.9 mg/dL (0.7-1.3); GLOMERULAR FILTRATION RATE 35; GLUCOSE 90 mg/dL (70-100); POTASSIUM 4.7 mEq/L (3.5-5.2); SODIUM 138 mEq/L (134-144)
--- NOTE | 2017-02-06 13:05 | CPEKG ---
Heart Rate: 64 RR Interval: 938 P-R Interval: 216 QRSD Interval: 118 QT Interval: 436 QTC Interval: 450 P [place]: 68 QRS [place]: 146 T Wave [place]: 62 EKG Severity - ABNORMAL ECG - EKG Impression: SINUS RHYTHM EKG Impression: ATRIAL PACED BEATS EKG Impression: NONSPECIFIC INTRAVENTRICULAR CONDUCTION DELAY EKG Impression: LOW VOLTAGE IN FRONTAL LEADS EKG Impression: LATERAL INFARCT, AGE INDETERMINATE Electronically Signed By: Maciej Rod 06-Feb-2017 13:26:29
[2017-02-06 13:16] LABS: INR 2.34 (0.83-1.16); PROTIME(PATIENT) 25.9 SEC (12.0-15.0)
[2017-02-06] MEDS ORDERED: BUPIVACAINE 0.5% 30 ML SDV ONE (13:41)
[2017-02-06] MEDS ORDERED: IOPAMIDOL (ISOVUE-300) 100 ML BTL ONE (13:41)
[2017-02-06] MEDS ORDERED: LIDOCAINE 1% 300 MG/30 ML SDV ONE (13:41)
[2017-02-06] MEDS ORDERED: REMIFENTANIL HCL 1 MG VIAL ONE (14:33)
[2017-02-06] MEDS ORDERED: PROPOFOL/EMULSION 500 MG/50 ML BOTTLE IV ONE (14:33)
[2017-02-06] MEDS ORDERED: LIDOCAINE 2% 100 MG/5 ML SYR ONE (14:34)
[2017-02-06] MEDS ORDERED: PHENYLEPHRINE HCL 100 MCG/ML SYR ONE (14:47)
[2017-02-06] MEDS ORDERED: epHEDrine SULFATE 10 MG/ML SYR ONE (14:47)
--- NOTE | 2017-02-06 17:28 | CPEKG ---
Heart Rate: 70 RR Interval: 857 P-R Interval: 156 QRSD Interval: 158 QT Interval: 448 QTC Interval: 484 P [place]: 67 QRS [place]: 258 T Wave [place]: 68 EKG Severity - ABNORMAL ECG - EKG Impression: ATRIAL-SENSED VENTRICULAR-PACED RHYTHM Electronically Signed By: Maciej Rod 07-Feb-2017 07:47:22
--- NOTE | 2017-02-06 21:17 | EPPROC ---
Electrophysiology Procedure Note: PROCEDURE PERFORMED: 1. Upgrade of A-V ICD to A-BiV ICD 2. Subclavian vein angiography 3. Fluoroscopy 4. Right heart catheterization INDICATION: Existing A-V ICD Cardiomyopathy QRS duration 135 ms NYHA Class II-III symptoms PROCEDURE NOTE: Patient presented to the cardiac catheterization laboratory in a fasting, postabsorptive state. Dr. Putnam administered sedation. The left infraclavicular area was prepped and draped in the usual sterile fashion. Lidocaine plus bupivacaine was used for local anesthesia. Left subclavian venography was performed by injection of iodinated contrast into the left antecubital vein. This was done to assure patency of the vein and also to assess for any anatomical aberrations. Using a combination of blunt and sharp dissection and electrocautery, the dissection was carried down to the prepectoral fascia. The existing ICD pocket was exposed. All bleeding was controlled with electrocautery. There was The pocket was packed with gauze soaked in antibiotic solution. Fluoroscopy was utilized during the entire procedure for venous access and placement of the leads. Using a direct stick technique the left extrathoracic axillary vein was accessed with 1 sticks using the modified Seldinger technique. Placement of the guide wire into the venous system was confirmed by low pressure blood return and also by visualizing the guide wire advancing into the inferior vena cava. A purse string suture was applied around the guide wire. Diagnostic testing of the existing leads was performed. Please note there is a capped abandoned unsuable ICD lead, therefore ICD system is not MRI compatible. A 9 [place] sheath was advanced over the guide wire into the subclavian vein. Using PWP catheter, right heart catheterization was performed. The coronary sinus ostium was engaged. Occlusion retrograde coronary sinus angiography was performed in 2 views. Total of 20cc of contrast was used. A coronary sinus quadrapolar lead was advanced into the coronary sinus. An angioplasty wire was advanced through the lead and advanced into the mid portion of the lateral branch of the coronary sinus. The lead was advanced over the angioplasty wire. Pacing threshold, sensing and impedance was determined. There was no diaphragmatic stimulation at maximum output. The delivery system and the 9 Fr sheath were peeled away. Again, pacing threshold, sensing and impedance was determined. There was no diaphragmatic stimulation at maximum output. The CS lead was secured to the prepectoral fascia with 3nonabsorbablesutures. Pacing threshold and sensing parameters of the RA and RV leads were checked again. The gauze packing was removed from the pacemaker pocket. The pocket was again inspected for any bleeding. The leads were attached to the pacemaker securely. The pacemaker was inserted into the pocket and secured in place with a nonabsorbable suture. Fluoroscopy was performed in ROBLES and BELIZE[place] planes to verify right sided placement of the RA and RV leads. Also fluoroscopy of the pacemaker pocket was performed. Defibrillation threshold testing was not performed. The pacemaker pocket was closed in 3 layers with absorbable monocryl sutures and pal. Appropriate dressing was applied. The patient left the cardiac catheterization laboratory in stable condition. Defibrillation testing: Not done Right heart catheterization Pressures RA 21 mmHg, RV 96/10mmHg PA 90/40 mmHg, PCWP 40 mmHg, v wave 50 mmHg Saturations RA 43.5, RV 43,3, Ao 97, PA 39.4 Cardiac output (Kulwant) 2.85 L/min , Cardiac index 1.34 L/min/m2 Serial Numbers: 1. Device Biotronink [id number] SN [id number] 2. Atrial Lead Biotronik Setrox S53 SN [id number] 3. Right Ventricular Lead Biotronik Linox S65 SN [id number] 4. Left Ventricular Lead Biotronik Sentus ProMRI SN [id number] Stimulation Thresholds & Impedance Measurements: 1. Atrial Lead 0.9 V 0.4 ms P 2.4 mV 522 ohm 2. Right Ventricular Lead R 15.1mV 0.7 V 0.4 ms 435 ohm 3. Left Ventricular Lead R 3.4 mV 681 ohm 1.1 V 0.4 ms Chuck Pacing Parameters: 1. Pacing mode DDD CLS 2. Lower rate 60 ppm 3. Upper rate 130 ppm Tachycardia therapy parameters: VT zone : Detection 150 bpm First therapy ATP x 3 Subsequent therapies 26 then 40 Joule VF zone : Detection 222 bpm First ATP x 1 Second therapy 26 Joule Subsequent therapies 40 Joule Patient Problems: Problems Problem Status Onset Systolic CHF, acute on chronic Acute Chronic systolic CHF (congestive heart failure) Acute Atrial fibrillation Acute Chronic Disease Mgmt/Transitional Care Acute Atrial fibrillation Acute Atrial fibrillation status post cardioversion Acute Renal insufficiency Acute
[2017-02-06] MEDS ORDERED: clonazePAM 0.5 MG TAB PO PRN (21:22)
[2017-02-06] MEDS ORDERED: ERGOCALCIFEROL 50,000 I.UNIT CAP PO SCH (21:30)
[2017-02-06] MEDS: CARVEDILOL 6.25 MG TAB PO SCH (22:01)
[2017-02-06] MEDS: hydrALAZINE 25 MG TAB PO SCH (22:04)
[2017-02-07] MEDS: FERROUS SULFATE 325 MG TAB PO SCH (06:38)
[2017-02-07] MEDS: hydrALAZINE 25 MG TAB PO SCH ×4 (06:39→21:09)
[2017-02-07] MEDS: ISOSORBIDE DINITRATE 10 MG TAB PO SCH ×3 (06:40→17:45)
--- NOTE | 2017-02-07 09:21 | PDCARPN ---
Cardiology Progress Note Assessment/Plan: Assessment: 1. NICMP. LVEF 10%, CI 1.34 L/min/m2; PA 90/40, PCWP 40, CVP 21 mmHg 2. Renal failure 3. sp BiV ICD Plan: 1. Start Lasix drip 2. Talked with Dr. Humphrey Sanchez, he will talk with [place] [facility] [place] if pt does not improve, transfer there for a VAD 3. Renal consult, have d.w. Dr. Catrina Baker 4. Have explained prognosis to patient and family at length yesterday evening. He needs to restrict salt and discontinue alcohol use. 02/07/17 09:18 Subjective: Feels SOA, did not sleep well last night Reviewed/Discussed With: family, multidisciplinary team, other (Bug Trimmer Dr. Baker) Time Spent With Patient: 25 min Objective: Vital Signs (8 Hrs) Temp Pulse Resp BP Pulse Ox 02/07/17 08:00 36.8 C 99 12 91/74 L 99 02/07/17 06:40 94/60 L 02/07/17 06:39 94/60 L 02/07/17 06:15 36.9 C 98 18 94/60 L 91 L Intake/Output (24 Hrs) 02/05/17 02/06/17 02/07/17 11:59 11:59 11:59 Intake Total 450 Balance 450 Intake: Oral (ml) 450 Other: Weight 88.5 kg 88.5 kg Number of Voids Toilet 2 Result Diagrams: 02/06/17 12:30 02/06/17 12:30 Telemetry: AFIB ICD10 Worksheet Patient Problems: Problems Problem Status Onset Systolic CHF, acute on chronic Acute Chronic systolic CHF (congestive heart failure) Acute Atrial fibrillation Acute Chronic Disease Mgmt/Transitional Care Acute Atrial fibrillation Acute Atrial fibrillation status post cardioversion Acute Renal insufficiency Acute
[2017-02-07] MEDS: CALCIUM CARBONATE 500 MG TAB PO SCH (09:25)
[2017-02-07] MEDS: AMIODARONE HCL 200 MG TAB PO SCH (09:28)
[2017-02-07] MEDS: lamoTRIgine 100 MG TAB PO SCH (09:28)
[2017-02-07] MEDS: SPIRONOLACTONE 25 MG TAB PO SCH (09:29)
[2017-02-07] MEDS: CARVEDILOL 6.25 MG TAB PO SCH ×2 (09:30→21:09)
[2017-02-07] MEDS: ALLOPURINOL 100 MG TAB PO SCH (09:31)
[2017-02-07] MEDS ORDERED: FUROSEMIDE 40 MG TAB PO SCH (10:00)
[2017-02-07] MEDS: FUROSEMIDE 100 MG in D5W 100 ML IV SCH ×2 (10:38→19:03)
--- NOTE | 2017-02-07 11:30 | PDGENHP ---
History and Physical - Chief Complaint CKD - History of Present Illness Mr. Basurto is a 71 yo M with h/o CHF with spongiform cardiomyopathy, CKD with Cr of 1.8-2.0 at baseline, who is admitted s/p cardiac cath and change from A-V ICD to A-BiV ICD. He has had multiple hospitalizations in the past few months. He had issues with Vtach at home, was taken off of Tikosyn end of last month and put back on amiodarone. He then presented last week with weakness and was found to have afib, was cardioverted at the time. His EF was noted to be 10-15% at that time. He was brought in for upgrade to BiV ICD yesterday, cardiac cath done which also showed LVEF 10%, PA 90/40, PCWP 40. His Cr yesterday was 1.9, which is his baseline. He is now being started on a Lasix ggt. Nephrology consulted to help monitor him while on Lasix ggt with know CKD. Pt follows with Dr. Lott in clinic, noted in the past to have normal urine CrCl despite high serum Cr, no significant proteinuria. Pt notes that today he has no dyspnea while sitting up but does have some on laying down. He denies swelling in his legs, and has some discomfort in his abdomen, which is typical of his afib. History Information - Allergies/Home Medication List Allergies/Adverse Reactions: levofloxacin Allergy (Verified 05/13/15 08:53) levofloxicillin Allergy (Uncoded 04/17/14 07:01) Home Medications: Atorvastatin Calcium [Lipitor 20 mg (*)] 20 mg PO HS 12/29/13 [Last Taken ] Carvedilol [Coreg (*)] 12.5 mg PO BID@12/29/13 [Last Taken 02/05/17 22:00] Digoxin [Lanoxin 0.125 mg] 0.125 mg PO DAILY10 12/29/13 [Last Taken 02/05/17] Divalproex ER [Depakote ER 250 MG (*)] 250 mg PO HS 12/29/13 [Last Taken ] Docusate Sodium [Colace 100 MG (*)] 200 mg PO HS 12/29/13 [Last Taken 02/05/17] Herbals/Supplements -Info Only 1 ea PO DAILY 05/22/14 [Last Taken 05/12/15] Calcium Carbonate [Calcium] 500 mg PO DAILY@10 11/17/14 [Last Taken 02/05/17] Ergocalciferol [Vitamin D2 (*)] 50,000 unit PO Q10D 02/01/17 [Last Taken ] clonazePAM [Clonazepam] 0.5 mg PO HS PRN 02/01/17 [Last Taken 02/05/17] Allopurinol [Allopurinol 100 MG (*)] 100 mg PO DAILY10 02/06/17 [Last Taken 12/19] Ferrous Sulfate [Ferrous Sulf 325 MG (*)] 325 mg PO DAILY@07 02/06/17 [Last Taken 02/05/17] Furosemide [Lasix 40 MG (*)] 40 mg PO DAILY10 02/06/17 [Last Taken 02/05/17] Isosorbide Dinitrate [Isosorbide Dinitrate 10 mg (*)] 10 mg PO TID@,,01/18 [Last Taken 02/05/17 17:00] Spironolactone [Aldactone 25 MG (*)] 12.5 mg PO DAILY10 02/06/17 [Last Taken 12/19] Warfarin Sodium [Coumadin 2.5MG (*)] 2.5 mg PO TUFR@16 02/06/17 [Last Taken 10/21] Warfarin Sodium [Coumadin 5MG (*)] 5 mg PO SUMOWETHSA@02/06/17 [Last Taken ] hydrALAZINE [Apresoline] 25 mg PO QID@,,,02/06/17 [Last Taken 02/05/17 22:00] lamoTRIgine [LamICTAL 100 MG (*)] 50 mg PO DAILY10 02/06/17 [Last Taken 02/05/17 ] I have personally reviewed and updated: medical history Past Medical History: spongiform cardiomyopathy. afib/flutter. gout. CKD stage III. HLD. Anemia. Mitral regurgitation. Depression - Surgical History Reports: ablation, pacemaker/AICD - Family History Additional family history: No premature CAD - Social History Smoking Status: Former smoker Review of Systems ROS: 10pt was reviewed & negative except for what was stated in HPI & below Physical Exam Temp Pulse Resp BP Pulse Ox 36.8 C 99 12 91/74 L 99 02/07/17 08:00 02/07/17 08:00 02/07/17 08:00 02/07/17 08:00 02/07/17 08:00 Constitutional: no apparent distress, appears nourished, not in pain Eyes: PERRL, anicteric sclera, EOMI Ears, Nose, Mouth, Throat: moist mucous membranes, hearing normal Cardiovascular: irregularly irregular, pulses symmetric bilaterally, No edema Peripheral Pulses: 2+: dorsalis-pedis (R), dorsalis-pedis (L) Respiratory: no respiratory distress, no rales or rhonchi, clear to auscultation Gastrointestinal: normoactive bowel sounds, soft, non-tender abdomen Skin: warm, normal color, No rash Musculoskeletal: no muscle tenderness, normal joint ROM, no joint effusions Neurologic: AAOx3, CN II-XII Intact, No asterixes Psychiatric: interacting appropriately, not anxious, not encephalopathic, thought process linear Lab Data & Imaging Review 02/06/17 12:30 02/06/17 12:30 WBC 5.80 10^3/uL (3.80-9.50) 02/06/17 12:30 RBC 3.63 10^6/uL (4.40-6.38) L 02/06/17 12:30 Hgb 11.9 g/dL (13.7-17.5) L 02/06/17 12:30 Hct 33.1 % (40.0-51.0) L 02/06/17 12:30 MCV 91.2 fL (81.5-99.8) 02/06/17 12:30 MCH 32.8 pg (27.9-34.1) 02/06/17 12:30 MCHC 36.0 g/dL (32.4-36.7) 02/06/17 12:30 RDW 13.0 % (11.5-15.2) 02/06/17 12:30 Plt Count 104 10^3/uL (150-400) L 02/06/17 12:30 MPV 10.7 fL (8.7-11.7) 02/06/17 12:30 Neut % (Auto) 66.3 % (39.3-74.2) 02/06/17 12:30 Lymph % (Auto) 22.8 % (15.0-45.0) 02/06/17 12:30 [place] % (Auto) 7.8 % (4.5-13.0) 02/06/17 12:30 Eos % (Auto) 2.6 % (0.6-7.6) 02/06/17 12:30 Baso % (Auto) 0.3 % (0.3-1.7) 02/06/17 12:30 Nucleat RBC Rel Count 0.0 % (0.0-0.2) 02/06/17 12:30 Absolute Neuts (auto) 3.85 10^3/uL (1.70-6.50) 02/06/17 12:30 Absolute Lymphs (auto) 1.32 10^3/uL (1.00-3.00) 02/06/17 12:30 Absolute Monos (auto) 0.45 10^3/uL (0.30-0.80) 02/06/17 12:30 Absolute Eos (auto) 0.15 10^3/uL (0.03-0.40) 02/06/17 12:30 Absolute Basos (auto) 0.02 10^3/uL (0.02-0.10) 02/06/17 12:30 Absolute Nucleated RBC 0.00 10^3/uL (0-0.01) 02/06/17 12:30 Immature Gran % 0.2 % (0.0-1.1) 02/06/17 12:30 Immature Gran # 0.01 10^3/uL (0.00-0.10) 02/06/17 12:30 PT 25.9 SEC (12.0-15.0) H 02/06/17 12:30 INR 2.34 (0.83-1.16) H 02/06/17 12:30 Sodium 138 mEq/L (134-144) 02/06/17 12:30 Potassium 4.7 mEq/L (3.5-5.2) 02/06/17 12:30 Chloride 103 mEq/L (97-110) 02/06/17 12:30 Carbon Dioxide 22 mEq/l (22-31) 02/06/17 12:30 Anion Gap 13 mEq/L (8-16) 02/06/17 12:30 BUN 34 mg/dL (7-23) H 02/06/17 12:30 Creatinine 1.9 mg/dL (0.7-1.3) H 02/06/17 12:30 Estimated GFR 35 02/06/17 12:30 Glucose 90 mg/dL (70-100) 02/06/17 12:30 Calcium 9.0 mg/dL (8.5-10.4) 02/06/17 12:30 Patient ABO/Rh O POSITIVE 02/06/17 12:30 Antibody Screen NEGATIVE 02/06/17 12:30 Assessment & Plan Assessment: Assessment/Plan: CKD stage III: pt with baseline Cr of 1.8-2.0, noted previously to have normal measured CrCl despite elevated serum Cr in past. Pt just had cardiac cath done yesterday, now with plans for Lasix ggt today given his high PA pressures. - Cr remains at baseline at 1.8 today. - Will monitor on Lasix ggt. - Will continue to monitor closely. - Avoid MOM, morphine, demerol, NSAIDs, contrast, aminoglycosides, fleets, and other nephrotoxins. Hypotension: SBP currently stable in 90s-100s, which pt reports is normal for him. Will continue to monitor in setting of diuresis along with isosorbide, carvedilol and hydralazine. Cardiomyopathy: pt with known spongiform cardiomyopathy, EF of 10% now, has BiV ICD in place as of yesterday, high PA pressures. Being diuresed with Lasix ggt today, will continue to monitor closely. Cardiology following, they are considering [place] [facility] [place]'s response. Thank you for the interesting consult. Nephrology will continue to follow, please call if you have any additional questions or concerns.
[2017-02-07 11:38] LABS: ANION GAP 14 mEq/L (8-16); CARBON DIOXIDE 19 mEq/l (22-31); CHLORIDE 104 mEq/L (97-110); CREATININE 1.8 mg/dL (0.7-1.3); GLOMERULAR FILTRATION RATE 38; GLUCOSE 154 mg/dL (70-100); POTASSIUM 4.7 mEq/L (3.5-5.2); SODIUM 137 mEq/L (134-144)
[2017-02-07] MEDS ORDERED: WARFARIN SODIUM 2.5 MG TAB PO SCH (16:00)
[2017-02-07] MEDS ORDERED: DIVALPROEX ER 250 MG TAB PO SCH (21:00)
[2017-02-07] MEDS ORDERED: ATORVASTATIN CALCIUM 20 MG TAB PO SCH (21:00)
[2017-02-07] MEDS ORDERED: DOCUSATE SODIUM 100 MG CAP PO SCH (21:00)
[2017-02-07 23:58] VITALS: O2SAT 97
[2017-02-08 08:03] LABS: HEMATOCRIT 31.7 % (40.0-51.0); HEMOGLOBIN 11.5 g/dL (13.7-17.5); MEAN CELL HEMOGLOBIN 32.6 pg (27.9-34.1); MEAN CELL HEMOGLOBIN CONCENTR. 36.3 g/dL (32.4-36.7); MEAN CELL VOLUME 89.8 fL (81.5-99.8); RED BLOOD CELL COUNT 3.53 10^6/uL (4.40-6.38); RED CELL DISTRIBUTION WIDTH 13.5 % (11.5-15.2)
[2017-02-08 08:21] VITALS: RESP 18; TEMP 98.7
[2017-02-08] MEDS: FERROUS SULFATE 325 MG TAB PO SCH (08:42)
[2017-02-08] MEDS: hydrALAZINE 25 MG TAB PO SCH (08:43)
[2017-02-08] MEDS: ISOSORBIDE DINITRATE 10 MG TAB PO SCH (08:43)
[2017-02-08 08:47] LABS: ALBUMIN 3.9 g/dL (3.5-5.0); ANION GAP 13 mEq/L (8-16); CARBON DIOXIDE 23 mEq/l (22-31); CHLORIDE 100 mEq/L (97-110); CREATININE 2.1 mg/dL (0.7-1.3); GLOMERULAR FILTRATION RATE 31; GLUCOSE 87 mg/dL (70-100); POTASSIUM 3.9 mEq/L (3.5-5.2); SODIUM 136 mEq/L (134-144)
[2017-02-08] MEDS ORDERED: CARVEDILOL 6.25 MG TAB PO SCH (10:16)
--- NOTE | 2017-02-08 10:20 | SOAPPROG ---
SOAP Progress Note Assessment/Plan: Assessment: 71 y/o man with acute on chronic systolic CHF with worsening CRI, hypotension and very concerning hemodynamics. He has diuresed a little on Lasix gtt but overall very tenuous and I think needs inpatient reevaluate for VAD and/or OHT. PLAN: 1)decrease Coreg to 3.125mg PO BID. 2)hold Coreg, Isordil and Hydralazine for SBP < 90. 3)stay off Altace which was stopped a week ago. 4)transfer tele-tele to [facility] to Dr. Ag Steward for continued attempt to compensated CHF but also OHT and VAD evaluation. 5)consider Nipride gtt tommorrow if SBP better. 6)EP-Dinesh is concerned IV inotropes like DBT gtt might trigger recurrent VT or Afib but might need to try Dobutamine gtt soon with close watch of tele. all discussed with pt and family. They agree with transfer to [facility]. Have discussed with Dr. Steward whom accepts pt in transfer. 02/08/17 10:14 Subjective: maybe feels a little better. Still ANGLIN at 20-30ft and feels abdomen distended. Denies CP, palpitations, near syncope. Has some mild orthopnea. Objective: Vital Signs Temp Pulse Resp BP Pulse Ox 37.1 C 70 18 85/65 L 97 02/08/17 08:00 02/08/17 08:00 02/08/17 08:00 02/08/17 08:00 02/08/17 08:00 Laboratory Results 02/08/17 07:58 02/08/17 07:58 02/07/17 02/08/17 02/09/17 05:59 05:59 05:59 Intake Total 450 1070 Output Total 2024 Balance 450 -955 PT 25.9 SEC (12.0-15.0) H 02/06/17 12:30 INR 2.34 (0.83-1.16) H 02/06/17 12:30 Physical Exam - Physical Exam General Appearance: alert EENT: PERRL/EOMI Neck: non-tender Respiratory: lungs clear Cardiac/Chest: regular rate, rhythm, gallop, JVD, systolic murmur, other ( enlarged PMI with LV heave) Peripheral Pulses: 2+: carotid (R), carotid (L), femoral (R), femoral (L), dorsalis-pedis (R), dorsalis-pedis (L) Abdomen: non-tender, organomegaly, No distended, No ascites Skin: warm/dry Extremities: No pedal edema Neuro/Psych: oriented x 3 ICD10 Worksheet Patient Problems: Problems Problem Status Onset Atrial fibrillation Acute Atrial fibrillation Acute Atrial fibrillation status post cardioversion Acute Chronic Disease Mgmt/Transitional Care Acute Chronic systolic CHF (congestive heart failure) Acute Renal insufficiency Acute Systolic CHF, acute on chronic Acute
[2017-02-08] MEDS ORDERED: CARVEDILOL 3.125 MG TAB PO SCH (10:45)
[2017-02-08] MEDS: AMIODARONE HCL 200 MG TAB PO SCH (10:46)
[2017-02-08] MEDS: lamoTRIgine 100 MG TAB PO SCH (10:47)
[2017-02-08] MEDS: CALCIUM CARBONATE 500 MG TAB PO SCH (10:47)
[2017-02-08] MEDS: ALLOPURINOL 100 MG TAB PO SCH (10:47)
[2017-02-08] MEDS: SPIRONOLACTONE 25 MG TAB PO SCH (10:47)
[2017-02-08 10:54] VITALS: BP 93/66; PULSE 80
[2017-02-08] MEDS: CARVEDILOL 6.25 MG TAB PO SCH (10:54)
--- NOTE | 2017-02-08 12:15 | GDS ---
[f rep st] DISCHARGE SUMMARY DATE OF ADMISSION: 02/06/17 DATE OF TRANSFER: 02/08/2017. PROCEDURES PERFORMED DURING HOSPITALIZATION: 1. Upgrade from dual-chamber AICD to biventricular AICD with Hon[place]-Leny catheter hemodynamics. 2. IV Lasix gtt. HISTORY OF PRESENT ILLNESS: The patient is a 71-year-old, gentleman with long-standing either viral or tachy-induced cardiomyopathy. He was admitted for elective upgrade to a biventricular AICD and Honobia-Leny catheter hemodynamics. Of note, his heart failure has been tenuous in the last month with several hospitalizations for decompensated heart failure. He was admitted from the EP lab with decompensated heart failure with PCWP of 40, CVP 21 and CI 1.3 L/MIN. HOSPITAL COURSE PER PROBLEMS: 1)Acute on chronic nonischemic systolic heart failure: The patient had had an echo the week beforehand which demonstrated an LVEF of 13% with an LVEDD of 7.4 cm and severe mitral regurgitation with moderate tricuspid insufficiency. Of note, on the day of admission, while getting his EP study, a Honobia-Leny catheter was inserted before the upgrade and demonstrated an RA pressure of 21, PA pressure 90/40, mean pulmonary capillary wedge pressure of 40, a PA saturation of 39.4, and a calculated cardiac output and cardiac index by Kulwant method of 2.9 and 1.3 L/minute respectively. He was started on a Lasix drip and diuresed some over the next 2 days. His creatinine went from 1.8 to 2.1, and his systolic blood pressure was in the 80s. At the time of transfer to the [facility] for consideration of transplant and VAD, he had mild abdominal swelling and could walk about 20-30 feet in the hallway before becoming short of breath. He had no chest pain or palpitations or AICD shocks. The case was discussed with Dr. Angelia Steward who agreed upon transfer for continued stabilization of his decompensated heart failure and re-evaluation for heart transplant and VAD. At the time of discharge, he was sent on low-dose Coreg, a Lasix drip, Isordil, hydralazine and Aldactone. Of note, the patient had been on Altace 5 mg a day until 10 days beforehand when his renal insufficiency worsened. EP- Dr. Dinesh was very concerned about using IV inotropes like Dobutamine as felt high risk for recurrent ventricular arrhythmias and afib on IV DBT. TRANSFER MEDICATIONS: Coreg 3.125 mg b.i.d., Lasix drip at 10 mg/hour, Isordil 10 mg t.i.d., hydralazine 25 mg q.6 hours, Aldactone 12.5 mg per day, and Coumadin. DISCHARGE TRANSFER LABS: White count 7.2, hematocrit 32, platelets 92,000, MCV 90. Sodium 136, potassium 3.9, chloride 100, bicarb 23, BUN 34, creatinine 2.1. Discharge weight 88.5 kg. Of note, patient is being transferred by ambulance to [facility] for consideration of VAD and heart transplant. /[id number]/MODL MTDD
[2017-02-08] MEDS ORDERED: WARFARIN SODIUM 5 MG TAB PO SCH (16:00)
== END 2017-02-08 11:40 | disposition short-term general hospital (02) | DRG 223 ==
LOC: F2N 11:17 → F2W 18:41 → OBSVTOIN 02-07 15:30
PROVIDERS: ADMIT Internal Medicine Cardiovascular Disease; ATTEND Internal Medicine Cardiovascular Disease
PROC: 02H43KZ Insertion of Defibrillator Lead into Coronary Vein, Percutaneous Approach (ICD-10-PCS; principal; 2017-02-06)
PROC: 0JPT0PZ Removal of Cardiac Rhythm Related Device from Trunk Subcutaneous Tissue and Fascia, Open Approach (ICD-10-PCS; principal; 2017-02-06)
PROC: 0JH639Z Insertion of Cardiac Resynchronization Defibrillator Pulse Generator into Chest Subcutaneous Tissue and Fascia, Percutaneous Approach (ICD-10-PCS; principal; 2017-02-06)
PROC: 4A023N6 Measurement of Cardiac Sampling and Pressure, Right Heart, Percutaneous Approach (ICD-10-PCS; principal; 2017-02-06)
DX: I50.22 Chronic systolic (congestive) heart failure (principal); I42.9 Cardiomyopathy, unspecified; N18.3 Chronic kidney disease, stage 3 (moderate); I95.9 Hypotension, unspecified; I48.91 Unspecified atrial fibrillation; E78.5 Hyperlipidemia, unspecified; D64.9 Anemia, unspecified; I34.0 Nonrheumatic mitral (valve) insufficiency; F32.9 Major depressive disorder, single episode, unspecified
CPT/HCPCS: C1769; C1882; C1900; J0690; J1644; J1940; J2001; J2370; J2704; P9017; Q9967